=== PATIENT | female | born 1935 | race Caucasian/White ===

== ENCOUNTER 2016-09-21 15:16 | Inpatient (IN) | payer OTHER, MEDICARE ==
[2016-09-21] MEDS ORDERED: DILTIAZEM 125 MG in D5W 125 ML IV SCH (18:30)
[2016-09-21] MEDS ORDERED: FUROSEMIDE 40 MG/4 ML VIAL IVP ONE (18:47)
[2016-09-21] MEDS ORDERED: ACETAMINOPHEN 325 MG TAB PO PRN (18:48)
[2016-09-21] MEDS ORDERED: ONDANSETRON 4 MG/2 ML VIAL IVP PRN (18:48)
[2016-09-21] MEDS ORDERED: ZOLPIDEM TARTRATE 5 MG TAB PO PRN (18:48)
[2016-09-21] MEDS ORDERED: HYDROCORTISONE 1% CREAM TP PRN (18:52)
--- NOTE | 2016-09-21 18:57 | PDGENHP ---
History and Physical History and Physical: HISTORY AND PHYSICAL ADMISSION NOTE CC: RAPID HEART RATE HISTORY: This patient with no history of heart disease arrhythmia or syncope comes from her primary care office because of rapid atrial fibrillation. She has not felt any palpitations, had any chest discomfort, or had any worse shortness of breath than usual. She has been under treatment for cellulitis of both ankles which was noted a couple weeks ago with some oral antibiotic. The patient does say she has noticed swelling in her legs for approximately 2 months more than usual, but no pain in the legs, no orthopnea, no pleuritic chest pain. She does mention that she has a pulse oximeter she uses it has been checking her pulse oximetry at home this past week and has noticed heart rates in the 120s and 130s for several days. EKG reportedly confirmed atrial fibrillation at the clinic. She does not have thyroid disease, is not an alcoholic or drink significant alcohol. Is no family history of arrhythmia ROS: She does think her cellulitis is getting somewhat better, is not having fever with that but it has not resolved. No other symptoms on comprehensive review PAST MEDICAL HISTORY: Currently under treatment for cellulitis of legs Sleep apnea with nightly CPAP Obesity on a new weight loss medicine Diabetes mellitus type 2 on oral medicines Esophageal reflux Osteoarthritis Hypertension Total knee arthroplasty Cholecystectomy FAMILY MEDICAL HISTORY: Her mother may have had heart failure in later years but no other heart disease. Both parents are SOCIAL HISTORY: She lives at the [facility]. She is originally from [place]. She quit smoking in the MEDICATIONS: Her home medicines have been reconciled by our pharmacist and I have reviewed the list in the electronic record and ordered appropriate medicines. PHYSICAL EXAMINATION: Vital Signs: Heart rate now in the 120s, otherwise still stable vital signs without fever Dental Professional: Atrial fibrillation Examination: General: alert, oriented, good mentation, relaxed She is morbidly obese Skin: warm, dry, good color; there is some stasis dermatitis at both ankles and what appears to be some resolving cellulitis with minor excoriations in the anterior aspects of the ankles, probably the source of her cellulitis HEENT: normal Neck: no mass, no jvd visible but the obesity makes examination difficult Resps: relaxed Lungs: Very diminished but clear breath sounds Heart: irregular, no murmur Abdomen: soft, nondistended, nontender, +BS, no mass Upper Extremities: normal Lower Extremities: no edema, warm No Bleeding or bruising 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 THIS IS OF UNCERTAIN CHRONICITY BUT HAS BEEN PRESENT FOR AT LEAST SEVERAL DAYS PROBABLY -The 2 months of swelling in her legs could potentially be due to this atrial fibrillation at least in part indicating possibly more chronic AFib # BILATERAL LEG EDEMA OF 2 MONTHS DURATION -this could be due to the AFib, pulmonary hypertension from her obesity and sleep apnea, or potentially even PE/DVT # CELLULITIS AND STASIS DERMATITIS OF BOTH LEGS. 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 Will need to check creatinine to make sure we are getting the right dosing -Echocardiogram -As she seems to have AFib for at least several days off anticoagulation at home , will not begin any attempt to cardiovert her at this point and will review this with Cardiology -cardiology consult I have reviewed the patient's case in detail with Dr. Rosmery Doran I have reviewed the patient's past medical records as part of this assessment, including previous laboratory data and medications
[2016-09-21] MEDS: APIXABAN 5 MG TAB PO SCH (19:47)
[2016-09-21] MEDS: CEPHALEXIN 500 MG CAP PO SCH (22:48)
[2016-09-21] MEDS: LATANOPROST 0.005% 2.5 ML OPHT DROPS EACHEYE SCH (22:50)
[2016-09-22 05:09] LABS: % IMMATURE GRANULYOCYTES 1.7 % (0.0-1.1); ABSOLUTE IMMATURE GRANULOCYTES 0.11 10^3/uL (0.00-0.10); ADD DIFF? NO; ADD MORPH? NO; ADD SCAN? NO; ATYPICAL LYMPHOCYTE FLAG 0 (0-99); FRAGMENT RBC FLAG 0 (0-99); HEMATOCRIT 40.8 % (38.0-47.0); HEMOGLOBIN 13.4 g/dL (12.6-16.3); LEFT SHIFT FLG 10 (0-99); LIPEMIA HEMOLYSIS FLAG 80 (0-99); MEAN CELL HEMOGLOBIN 28.9 pg (27.9-34.1); MEAN CELL HEMOGLOBIN CONCENTR. 32.8 g/dL (32.4-36.7); MEAN CELL VOLUME 88.1 fL (81.5-99.8); PLATELET CLUMPS FLAG 10 (0-99); PLATELET COUNT 298 10^3/uL (150-400); RED BLOOD CELL COUNT 4.63 10^6/uL (4.18-5.33); RED CELL DISTRIBUTION WIDTH 12.8 % (11.5-15.2)
[2016-09-22 05:26] LABS: ANION GAP 9 mEq/L (8-16); CALCIUM 9.5 mg/dL (8.5-10.4); CARBON DIOXIDE 30 mEq/l (22-31); CHLORIDE 103 mEq/L (97-110); CREATININE 0.7 mg/dL (0.6-1.0); GLOMERULAR FILTRATION RATE > 60; GLUCOSE 158 mg/dL (70-100); MAGNESIUM 1.6 mg/dL (1.6-2.3); POTASSIUM 4.1 mEq/L (3.5-5.2); SODIUM 142 mEq/L (134-144)
--- NOTE | 2016-09-22 08:25 | DX ---
PA and lateral chest - September 21, 2016 HISTORY: Atrial fibrillation. COMPARISON: Portable chest August 26, 2014, PA and lateral chest August 24, 2014. FINDINGS: Mild interstitial prominence and peribronchial thickening are not appreciably changed. Ther e is no pneumothorax. Tiny effusions are suspected. Pleural thickening in the lateral left chest is s table. Moderate cardiomegaly is slightly increased. A hiatal hernia is suspected. Degenerative change is present in the spine. Impression: Cardiomegaly and effusions with mild peribronchial thickening, which could be related to mild CHF, although superimposed bronchitis could have a similar appearance.
[2016-09-22] MEDS: MULTIVITAMINS 1 EACH TAB PO SCH (08:43)
[2016-09-22] MEDS: FUROSEMIDE 40 MG/4 ML VIAL IVP SCH ×2 (08:43→14:57)
[2016-09-22] MEDS: LISINOPRIL 20 MG TAB PO SCH (08:43)
[2016-09-22] MEDS: APIXABAN 5 MG TAB PO SCH ×2 (08:44→23:09)
[2016-09-22] MEDS: PANTOPRAZOLE SODIUM 40 MG TAB PO SCH (08:44)
[2016-09-22] MEDS: CHOLECALCIFEROL VIT D3 1,000 UNITS TAB PO SCH (08:45)
[2016-09-22] MEDS: GLUCOSAMINE/CHONDROITIN CAP PO SCH (08:45)
[2016-09-22] MEDS: ASPIRIN EC 81 MG TAB PO SCH (08:45)
--- NOTE | 2016-09-22 09:13 | HOSPPROG ---
Hospitalist Progress Note Assessment/Plan: #New onset atrial fibrillation -will transition to PO dilt today -TTE with mildly decreased EF, biatrial enlargement -Eliquis -CTA in morning to eval for PE #LE edema -suspect due to a fib -TTE shows low-normal LVEF 50-55%. BNP normal -cont IV lasix at decreased dose -check UA for protein, TSH, LFTs #Controlled DM: metformin #Benign HTN -cont ACEI #Nonpurulent LE cellulitis: cont Keflex #GILMA -CPAP #Diet: low sodium #DVT ppx: Eliquis Subjective: feeling better today Objective: Vital Signs Temp Pulse Resp BP Pulse Ox 36.6 C 85 14 142/97 H 91 L 09/22/16 08:00 09/22/16 08:00 09/22/16 08:00 09/22/16 08:43 09/22/16 08:00 Laboratory Results 09/22/16 04:35 09/22/16 04:35 09/21/16 09/22/16 09/23/16 05:59 05:59 05:59 Intake Total 796 Output Total 1600 600 Balance -804 -600 - Physical Exam Constitutional: obese Eyes: PERRL Ears, Nose, Mouth, Throat: moist mucous membranes Cardiovascular: irregularly irregular Respiratory: no respiratory distress, no rales or rhonchi Gastrointestinal: normoactive bowel sounds, no palpable masses Skin: other (BL excoriations with erythema, warmth to touch. No purulence) ICD10 Worksheet Patient Problems: Problems Problem Status Diagnosed Influenza A Acute
[2016-09-22] MEDS: CEPHALEXIN 500 MG CAP PO SCH ×2 (10:38→23:11)
--- NOTE | 2016-09-22 12:04 | ECHO ---
[id number] + + [address] : : [place] [address] : : [phone] + + Adult Echocardiographic Report + + :Name: ADDI SANTIAGO Study Date: 09/22/2016 10:02 AM : : Hospital Admission Number: [id number] : :: 1935 Gender: Female Height: 64 in : :Age: 80 yrs Race: WH Weight: 290 lb : :Reason For Study: Eval LV Fx : : BSA: 2.3 meters2: :History: New onset A-Fib, : + + MMode/2D Measurements & Calculations IVSd: 0.98 cm LVIDd: 4.8 cm FS: 27.2 % Ao root diam: 3.2 cm LVPWd: 1.1 cm LVIDs: 3.5 cm EDV(Teich): 106.9 ml ACS: 2.1 cm ESV(Teich): 50.4 ml EF(Teich): 52.8 % Normal Measurement Values: + + :LVIDd (3.5-5.7cm) IVSd (0.6-1.1cm) LVPWd (0.6-1.1cm) Aortic Root (2.0-3.7cm)Left Atrium (1.5-4.0cm): :LV Vol(d) (76-115ml) LV Vol(s) (29-48ml) Ejec Fraction (50-65%)PV Duglas (0.6- 1.2m/s) TV Duglas (0.4-1.0m/s) : :MV E Duglas (0.8-1.0m/s)MV A Duglas (0.3-1.0m/s)LVOT Duglas (0.7-1.2m/s) Asc Ao Duglas ( 0.9-1.8m/s) : + + Doppler Measurements & Calculations MV E max duglas: Ao V2 max: LV V1 max: PA V2 max: 107.6 cm/sec 157.5 cm/sec 75.0 cm/sec 100.4 cm/sec MV A max duglas: Ao max PG: LV V1 max PG: PA max P.1 cm/sec 9.9 mmHg 2.3 mmHg 4.0 mmHg MV E/A: 3.5 Left Ventricle The left ventricle is normal in size. There is normal left ventricular wall thickness. Left ventricular systolic function is low normal. Ejection Fraction = 50-55%. Right Ventricle The right ventricle is normal in size and function. Atria The left atrium is mild to moderately dilated. The right atrium is mild to moderately dilated. Mitral Valve The mitral valve is normal in structure and function. There is no evidence of mitral valve prolapse. There is no mitral valve stenosis. There is no mitral regurgitation noted. Tricuspid Valve Normal tricuspid valve. There is trace to mild tricuspid regurgitation. Right ventricular systolic pressure is normal. Aortic Valve The aortic valve opens well. There is mild aortic valve calcification. There is no aortic stenosis. There is no aortic insufficiency. Pulmonic Valve The pulmonic valve is normal in structure and function. There is no pulmonic valvular regurgitation. Great Vessels The aortic root is normal size. Pericardium/Pleural There is no pericardial effusion. The rhythm is atrial fibrillation. Conclusion A complete two-dimensional transthoracic echocardiogram was performed (2D, M-mode, Doppler and color flow Doppler). Left ventricular systolic function is low normal. Ejection Fraction = 50-55%. The right ventricle is normal in size and function. The left atrium is mild to moderately dilated. The right atrium is mild to moderately dilated. The mitral valve is normal in structure and function. There is trace to mild tricuspid regurgitation. Right ventricular systolic pressure is normal. The aortic valve opens well. There is mild aortic valve calcification. The pulmonic valve is normal in structure and function. There is no pericardial effusion. The rhythm is atrial fibrillation. Compared with 08/2014, LV systolic function is now low normal compared with normal Final Reading Physician: Dr Jessie Balderrama electronically signed on 09/22/2016 12:03 PM Ordering Physician: Du Hernandez Performed By: Enrique Honeycutt, CS
[2016-09-22] MEDS: DILTIAZEM 30 MG TAB PO SCH ×2 (18:03→23:11)
[2016-09-22] MEDS: metFORMIN SR 500 MG TAB PO SCH (18:03)
[2016-09-22] MEDS: LATANOPROST 0.005% 2.5 ML OPHT DROPS EACHEYE SCH (23:11)
[2016-09-22 23:23] LABS: COLOR YELLOW; LEUKOCYTE ESTERASE,URINE 2+ (NEGATIVE); NITRITE,URINE NEGATIVE (NEGATIVE)
[2016-09-22 23:28] LABS: BACTERIA TRACE /hpf (NONE SEEN); MUCUS TRACE /lpf (NONE-1+); WBC,URINE 25-50 /hpf (0-3)
[2016-09-23 04:34] LABS: ALANINE AMINOTRANSFERASE 39 IU/L (9-52); ALBUMIN 3.7 g/dL (3.5-5.0); ALKALINE PHOSPHATASE 72 IU/L (38-126); ANION GAP 10 mEq/L (8-16); ASPARTATE AMINOTRANSFERASE 24 IU/L (14-46); CALCIUM 9.5 mg/dL (8.5-10.4); CARBON DIOXIDE 33 mEq/l (22-31); CHLORIDE 98 mEq/L (97-110); CREATININE 0.8 mg/dL (0.6-1.0); GLOMERULAR FILTRATION RATE > 60; GLUCOSE 172 mg/dL (70-100); MAGNESIUM 1.5 mg/dL (1.6-2.3); POTASSIUM 3.7 mEq/L (3.5-5.2); SODIUM 141 mEq/L (134-144); TOTAL PROTEIN 6.5 g/dL (6.3-8.2)
[2016-09-23] MEDS: DILTIAZEM 30 MG TAB PO SCH ×2 (06:19→12:55)
--- NOTE | 2016-09-23 08:30 | HOSPPROG ---
Hospitalist Progress Note Assessment/Plan: #New onset atrial fibrillation vs flutter -TTE with mildly decreased EF, biatrial enlargement, normal RV function -Appreciate Dr. Balderrama's consultation. -change to Metoprolol 25mg BID #Mildly decompensated HF with preserved EF% -suspect due to underlying GILMA, atrial fibrillation -TTE shows low-normal LVEF 50-55%. BNP normal -cont IV lasix #Controlled DM: metformin #GILMA -CPAP #Benign HTN -cont ACEI #Nonpurulent LE cellulitis: -improving on Keflex #GILMA -CPAP #Diet: low sodium #DVT ppx: Eliquis Subjective: no chest pain, SOB or dizziness Objective: Vital Signs Temp Pulse Resp BP Pulse Ox 36.8 C 115 H 20 133/72 H 93 09/23/16 04:00 09/23/16 06:19 09/23/16 04:00 09/23/16 04:00 09/23/16 04:00 Laboratory Results 09/22/16 04:35 09/23/16 03:52 09/22/16 09/23/16 09/24/16 05:59 05:59 05:59 Intake Total 796 1460 Output Total 1600 7387 Balance -623 -8683 - Physical Exam Constitutional: no apparent distress, obese Eyes: PERRL Ears, Nose, Mouth, Throat: moist mucous membranes Cardiovascular: irregularly irregular, edema (+3 LE edema, improved from yesterday) Respiratory: no respiratory distress Gastrointestinal: normoactive bowel sounds Genitourinary: no bladder fullness Skin: warm, other (erythema over left sarkar improved.) Musculoskeletal: full muscle strength Neurologic: AAOx3 Psychiatric: interacting appropriately ICD10 Worksheet Patient Problems: Problems Problem Status Diagnosed Influenza A Acute
--- NOTE | 2016-09-23 08:31 | US ---
Ultrasound Venous Duplex Doppler - Bilateral Legs at 7:42 AM hours History: Pain and swelling. Findings: Ultrasound venous Duplex and Doppler imaging of the bilateral common femoral veins, femoral veins, popliteal veins, calf veins, and greater saphenous vein origins demonstrates normal compressi bility, Duplex color-flow, Doppler flow without deep venous thrombosis. Impression: No deep venous thrombosis bilateral legs.
[2016-09-23] MEDS ORDERED: FUROSEMIDE 20 MG/2 ML VIAL IVP SCH (09:00)
[2016-09-23] MEDS: GLUCOSAMINE/CHONDROITIN CAP PO SCH (09:20)
[2016-09-23] MEDS: LISINOPRIL 20 MG TAB PO SCH (09:20)
[2016-09-23] MEDS: APIXABAN 5 MG TAB PO SCH ×2 (09:20→20:35)
[2016-09-23] MEDS: PANTOPRAZOLE SODIUM 40 MG TAB PO SCH (09:20)
[2016-09-23] MEDS: ASPIRIN EC 81 MG TAB PO SCH (09:20)
[2016-09-23] MEDS: CHOLECALCIFEROL VIT D3 1,000 UNITS TAB PO SCH (09:21)
[2016-09-23] MEDS: MULTIVITAMINS 1 EACH TAB PO SCH (09:21)
--- NOTE | 2016-09-23 11:53 | CPEKG ---
Heart Rate: 111 RR Interval: 541 QRSD Interval: 102 QT Interval: 364 QTC Interval: 495 QRS Mulberry: 69 T Wave Mulberry: -13 EKG Severity - ABNORMAL ECG - EKG Impression: ATRIAL FLUTTER, A-RATE 272 EKG Impression: BORDERLINE PROLONGED QT INTERVAL Electronically Signed By: Robert Lovelace 24-Sep-2016 10:01:04
[2016-09-23] MEDS: CEPHALEXIN 500 MG CAP PO SCH ×2 (12:52→23:52)
[2016-09-23] MEDS ORDERED: PROTOCOL POTASSIUM 1 DOSE MISC PRN ×2 (14:45→15:08)
[2016-09-23] MEDS ORDERED: PROTOCOL MAGNESIUM 1 DOSE IV PRN (14:45)
[2016-09-23] MEDS ORDERED: FUROSEMIDE 40 MG TAB PO SCH (15:00)
[2016-09-23] MEDS ORDERED: MAGNESIUM SULF 2 GM/WATER 50 ML IV ONE ×3 (15:11→18:30)
[2016-09-23] MEDS: FUROSEMIDE 40 MG/4 ML VIAL IVP SCH (15:41)
[2016-09-23] MEDS: METOPROLOL TARTRATE 25 MG TAB PO SCH ×2 (15:54→20:35)
--- NOTE | 2016-09-23 17:52 | GCON ---
[f rep st] CONSULTATION CARDIOLOGY CONSULT DATE OF CONSULTATION: 09/23/2016 CHIEF COMPLAINT: Atrial fibrillation. HISTORY OF PRESENT ILLNESS: We are asked by Dr. Abernathy to visit with Michelle. The patient is an 81-year -old female with hypertension, sleep apnea recently not compliant with CPAP, diabetes, morbid obesity , chronic hypoxic respiratory failure. She was admitted from Dr. Doran's office on September 21 in atrial fibrillation with ventricular response. This was discovered at her office visit. The patient has recently been treated for ankle cellulitis and has had several weeks of bilateral low er extremity edema. Over the past week or so, she has noticed exertional dyspnea. She has not had a ny chest discomfort. She denies presyncope or syncope. She denies palpitations or a sensation of ra pid heartbeat. She does admit that over the summer and fall, she was not using her CPAP but did start using it more recently. REVIEW OF SYSTEMS: A full 10-point review of systems is performed, notable for 1 episode of rectal b leeding in 2008. No history of stroke or TIA. No fever or chills. No nausea, vomiting, or diarrhea . No dysuria, but she does have urinary incontinence. ALLERGIES: Penicillin. PAST MEDICAL HISTORY: 1. Hypertension. 2. Diabetes. 3. Newly diagnosed atrial fibrillation. 4. Morbid obesity. 5. Chronic hypoxic respiratory failure. 6. Cellulitis. 7. Osteoarthritis. 8. Reflux. 9. Sleep apnea with a prescription for CPAP. PAST SURGICAL HISTORY: Status post total knee replacement, status post cholecystectomy. MEDICATIONS ON ADMISSION: Aspirin 81 mg daily, hydrocortisone cream, Glucophage 500 mg daily, hydro chlorothiazide 25 mg daily, Keflex, multivitamin, omeprazole 20 mg daily, vitamin D3, Xalatan eyedro ps, and lisinopril 20 mg daily. SOCIAL HISTORY: The patient lives at the [facility]. She is . She does not smoke cigarettes o r drink alcohol. FAMILY HISTORY: Not applicable to the current case. PHYSICAL EXAM: VITAL SIGNS: Blood pressure 127/64, heart rate 100, oxygen saturation 92% on 3 L nadiya al cannula,respiratory rate is 23, and she is afebrile. Telemetry: AFib with periods of rapid ventricular response. GENERAL: Elderly, obese female, in no acute distress. HEENT: Sclerae clear and free of jaundice. Mucous membranes moist. Normocephalic, atraumatic. CARDIOVASCULAR: JVP is approximately 14 cm of water. Carotids equal and 2+ without bru its. Irregularly irregular rhythm with a soft early systolic murmur at the left lower sternal border . No S3. LUNGS: Clear to auscultation bilaterally without wheezes, rhonchi, or rales. ABDOMEN: O bese, soft, nontender, nondistended. No bruits. No obvious hepatosplenomegaly or masses. EXTREMITI ES: Warm and well perfused without cyanosis or clubbing. There are cellulitic changes over both ank les. She has 1+ pitting edema to the midshin bilaterally. NEURO: Alert and oriented x3 without nelson ss focal neurological deficits. LABORATORY DATA: White count 6.5, hematocrit 41, and platelets are 298. Sodium 141, potassium 3.7, chloride 98, bicarb 33, BUN 26, creatinine 0.8. Magnesium 1.5. Bilirubin 2. BNP 404. TSH is ranjan l. IMAGING: Chest x-ray reviewed by me: Cardiomegaly, small bilateral pleural effusions. Echocardiogr am reviewed by me: Low normal LV systolic function with an ejection fraction of 50-55%, no ischemic wall motion abnormalities, RV is normal in size and function, mild to moderate biatrial dilation, tra ce mild tricuspid regurgitation with normal estimated pulmonary artery pressures. EKG: AFib with ve ntricular response of 111 beats per minute, anterior Q-waves in V1 and V2, QT interval is borderline prolonged. Lower extremity ultrasound is negative for DVT. ASSESSMENT AND PLAN: An 81-year-old female with hypertension, diabetes, morbid obesity and likely ob esity hypoventilation, sleep apnea with recent continuous positive airway pressure noncompliance. e is admitted with atrial fibrillation that appears to have triggered diastolic heart failure. 1. Atrial fibrillation: She was initially on IV diltiazem, then oral diltiazem. I switched her to oral metoprolol with intent to up-titrate to resting heart rate less than 100. I think diltiazem may exacerbate her preexisting lower extremity edema and complicate assessment of volume status. She ag s been started on Eliquis for a [id number] score of 6. Bleeding risks of this medication were revi ewed with the patient and she verbalized understanding. At this point, would not cardiovert her unti l she is more euvolemic and has been predictably back on her CPAP to ensure a higher rate of long-ter m success from cardioversion. Of note, TSH is normal. Discontinue aspirin now that she is on Eliqui s. 2. Heart failure with preserved ejection fraction: I would continue IV diuresis. Her BNP may be fa lsely low due to her obesity. She does appear volume overloaded on exam as manifested by elevated JV P and lower extremity edema. Hopefully. With improved rate control volume status will also improve. 3. Hypertension: Currently well controlled. 4. Sleep apnea: She admits that she has not reliably been using her CPAP. She reports that she ignacio s have an appointment at the [facility] coming up. , I encouraged her to continue with this and wear her CPAP. 5. Obesity: This is complicating her care. It may be 1 cause of her hypoxic respiratory failure. 6. Diabetes: She is on metformin, per Internal Medicine. Thank you for allowing us to participate in the care of Michelle Ronquillo. Will follow with you. /[id number]/MODL
[2016-09-23] MEDS: metFORMIN SR 500 MG TAB PO SCH (18:20)
[2016-09-23 19:07] LABS: POTASSIUM 4.6 mEq/L (3.5-5.2)
[2016-09-23] MEDS: LATANOPROST 0.005% 2.5 ML OPHT DROPS EACHEYE SCH (20:36)
[2016-09-24 05:45] LABS: ANION GAP 11 mEq/L (8-16); CARBON DIOXIDE 31 mEq/l (22-31); CHLORIDE 98 mEq/L (97-110); CREATININE 0.8 mg/dL (0.6-1.0); GLOMERULAR FILTRATION RATE > 60; GLUCOSE 174 mg/dL (70-100); POTASSIUM 4.8 mEq/L (3.5-5.2); SODIUM 140 mEq/L (134-144)
--- NOTE | 2016-09-24 08:47 | HOSPPROG ---
Hospitalist Progress Note Assessment/Plan: #New onset atrial fibrillation -TTE with mildly decreased EF, biatrial enlargement, normal RV function -Appreciate Dr. Balderrama's consultation. -change to Metoprolol 25mg TID, Eliquis #Mildly decompensated HF with preserved EF% -suspect due to underlying GILMA, atrial fibrillation -TTE shows low-normal LVEF 50-55%. BNP normal -improved LE edema, will trial PO dosing today #Controlled DM: metformin #GILMA -CPAP. Outpatient sleep study #Pyuria -60K CFU Pseudo. Will not tx since asymptomatic #Benign HTN -cont ACEI #Nonpurulent LE cellulitis: -improving on Keflex #GILMA -CPAP #Diet: low sodium #DVT ppx: Eliquis Disp: cont monitored diuresis Subjective: legs feel less swollem Objective: Vital Signs Temp Pulse Resp BP Pulse Ox 36.6 C 91 25 H 114/84 H 96 09/24/16 07:38 09/24/16 07:38 09/24/16 07:38 09/24/16 07:38 09/24/16 07:38 Laboratory Results 09/22/16 04:35 09/24/16 05:12 09/23/16 09/24/16 09/25/16 05:59 05:59 05:59 Intake Total 1460 690 Output Total 7318 3150 Balance -4298 -6583 - Physical Exam Constitutional: obese Eyes: PERRL Ears, Nose, Mouth, Throat: moist mucous membranes Cardiovascular: irregularly irregular, edema (+2 LE edema) Respiratory: no respiratory distress, no rales or rhonchi Gastrointestinal: normoactive bowel sounds Skin: warm, other (lower extremity redness improved BL legs) Musculoskeletal: full muscle strength Neurologic: AAOx3 Psychiatric: interacting appropriately ICD10 Worksheet Patient Problems: Problems Problem Status Diagnosed Influenza A Acute
[2016-09-24] MEDS: METOPROLOL TARTRATE 25 MG TAB PO SCH ×3 (09:02→22:32)
[2016-09-24] MEDS: APIXABAN 5 MG TAB PO SCH ×2 (09:02→20:43)
[2016-09-24] MEDS: MULTIVITAMINS 1 EACH TAB PO SCH (10:29)
[2016-09-24] MEDS: GLUCOSAMINE/CHONDROITIN CAP PO SCH (10:29)
[2016-09-24] MEDS: PANTOPRAZOLE SODIUM 40 MG TAB PO SCH (10:29)
[2016-09-24] MEDS: CHOLECALCIFEROL VIT D3 1,000 UNITS TAB PO SCH (10:29)
[2016-09-24] MEDS: LISINOPRIL 20 MG TAB PO SCH (10:29)
[2016-09-24] MEDS: FUROSEMIDE 80 MG TAB PO SCH ×2 (11:14→15:11)
[2016-09-24] MEDS: CEPHALEXIN 500 MG CAP PO SCH ×2 (11:15→22:32)
[2016-09-24] MEDS: FUROSEMIDE 40 MG/4 ML VIAL IVP SCH (11:16)
--- NOTE | 2016-09-24 11:39 | PDCARPN ---
Cardiology Progress Note Assessment/Plan: Assessment/plan: 81-year-old female with chronic hypoxic respiratory failure, sleep apnea, morbid obesity, hypertension, diabetes. Admitted September 21 when she was found to be incidentally in atrial fibrillation with rapid ventricular response at Dr. Dorna's office. She has diuresed well and has been transitioned to oral Lasix. Heart rate is improved but still suboptimally controlled. No evidence of cardiac ischemia. 1. Atrial fibrillation: Titrate metoprolol. She has been started on Eliquis for CHADS2 Vasc score of 6. Bleeding risks have been reviewed. Would wait to cardiovert her once she is more euvolemic and has had her CPAP re-initiated. 2. Hypertension: Well controlled 3. sleep apnea and chronic hypoxic respiratory failure with pulmonary hypertension: She does have follow-up with [facility] to restart her CPAP. I emphasized the importance of this. Weight loss would also be beneficial. 4. Diabetes: She is on metformin 5. cellulitis: On antibiotics. 09/24/16 11:40 Subjective: Michelle reports that she did not have dyspnea with walking. No chest pain. Lower extremity edema is, subjectively, improved Reviewed/Discussed With: family Objective: Vital Signs (8 Hrs) Temp Pulse Resp BP Pulse Ox 09/24/16 07:38 36.6 C 91 25 H 114/84 H 96 09/24/16 04:00 36.8 C 112 H 15 98/78 L 96 Intake/Output (24 Hrs) 09/23/16 09/24/16 09/25/16 05:59 05:59 05:59 Intake Total 1460 690 Output Total 7350 3150 Balance -5890 -2460 Intake: Oral (ml) 1460 690 Output: Urine (ml) 7350 3150 Toilet 850 Bedside Commode 6500 3150 Other: Weight 127.8 kg Intake Quantity Yes Yes Sufficient Number of Voids Bedside Commode 1 Number of Stools Bedside Commode 1 no acute distress. JVP 10 cm water. Irregular regular rhythm. No S3. No murmur Lungs occasional rhonchi. No wheezes or rales. Improved mild lower extremity edema to mid sarkar bilaterally Result Diagrams: 09/22/16 04:35 09/24/16 05:12 Cardiac Labs: Cardiac Lab Results (72 Hrs) 09/23/16 16:10 Troponin I 0.013 Telemetry: Atrial fibrillation with periods of rapid ventricular response ICD10 Worksheet Patient Problems: Problems Problem Status Diagnosed Influenza A Acute
[2016-09-24] MEDS: metFORMIN SR 500 MG TAB PO SCH (17:43)
[2016-09-24] MEDS: LATANOPROST 0.005% 2.5 ML OPHT DROPS EACHEYE SCH (20:44)
[2016-09-25 05:11] LABS: ANION GAP 10 mEq/L (8-16); CALCIUM 9.7 mg/dL (8.5-10.4); CARBON DIOXIDE 32 mEq/l (22-31); CHLORIDE 97 mEq/L (97-110); GLOMERULAR FILTRATION RATE 53; GLUCOSE 176 mg/dL (70-100); POTASSIUM 4.7 mEq/L (3.5-5.2); SODIUM 139 mEq/L (134-144)
[2016-09-25 07:46] VITALS: O2SAT 96
[2016-09-25] MEDS: GLUCOSAMINE/CHONDROITIN CAP PO SCH (09:15)
[2016-09-25] MEDS: MULTIVITAMINS 1 EACH TAB PO SCH (09:15)
[2016-09-25] MEDS: FUROSEMIDE 80 MG TAB PO SCH ×2 (09:15→15:47)
[2016-09-25] MEDS: APIXABAN 5 MG TAB PO SCH (09:15)
[2016-09-25] MEDS: LISINOPRIL 20 MG TAB PO SCH (09:15)
[2016-09-25] MEDS: METOPROLOL TARTRATE 25 MG TAB PO SCH ×2 (09:16→15:47)
[2016-09-25] MEDS: CHOLECALCIFEROL VIT D3 1,000 UNITS TAB PO SCH (09:16)
[2016-09-25] MEDS: PANTOPRAZOLE SODIUM 40 MG TAB PO SCH (09:16)
[2016-09-25 11:24] VITALS: BP 110/70; PULSE 104; RESP 16; TEMP 98.1
--- NOTE | 2016-09-25 12:02 | HOSPPROG ---
[id number] normal RV function -Appreciate Dr. Balderrama's consultation. -change to Metoprolol 25mg TID, Eliquis #Mildly decompensated HF with preserved EF% -suspect due to underlying GILMA, atrial fibrillation -TTE shows low-normal LVEF 50-55%. BNP normal -improved LE edema, will change Lasix 40mg BID #Controlled DM: metformin #GILMA -CPAP. Outpatient sleep study #Pyuria -60K CFU Pseudo. 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 Objective: Vital Signs Temp Pulse Resp BP Pulse Ox 36.7 C 104 H 16 110/70 96 09/25/16 11:23 09/25/16 11:23 09/25/16 11:23 09/25/16 11:23 09/25/16 11:23 Microbiology 09/23/16 09:00 Urine Culture - Final Urine,Clean Catch Pseudomonas Aeruginosa Laboratory Results 09/22/16 04:35 09/25/16 04:25 09/24/16 09/25/16 09/26/16 05:59 05:59 05:59 Intake Total 690 2390 480 Output Total 3150 1700 1500 Balance -2460 690 -1020 - Physical Exam Constitutional: no apparent distress, obese Eyes: PERRL Ears, Nose, Mouth, Throat: moist mucous membranes Cardiovascular: irregularly irregular, edema (+1 edema, less than yesterday) Respiratory: no respiratory distress, no rales or rhonchi Gastrointestinal: normoactive bowel sounds Genitourinary: no bladder fullness Skin: other (erythma unchanged LEs) ICD10 Worksheet Patient Problems: Problems Problem Status Diagnosed Influenza A Acute
[2016-09-25] MEDS: CEPHALEXIN 500 MG CAP PO SCH (12:29)
--- NOTE | 2016-09-25 14:34 | PDCARPN ---
Cardiology Progress Note Assessment/Plan: Assessment/plan: 81-year-old female with chronic hypoxic respiratory failure, sleep apnea, morbid obesity, hypertension, diabetes. Admitted September 21 when she was found to be incidentally in atrial fibrillation with rapid ventricular response at Dr. Doran's office. She has diuresed well and has been transitioned to oral Lasix. Heart rate is improved but still suboptimally controlled. No evidence of cardiac ischemia. 1. Atrial fibrillation: Well controlled on metoprolol. She has been started on Eliquis for CHADS2 Vasc score of 6. Bleeding risks have been reviewed. Would wait to cardiovert her once she is more euvolemic and has had her CPAP re- initiated. 2. Hypertension: Well controlled 3. sleep apnea and chronic hypoxic respiratory failure with pulmonary hypertension: She does have follow-up with [facility] to restart her CPAP. I emphasized the importance of this. Weight loss would also be beneficial. 4. Diabetes: She is on metformin 5. cellulitis: On antibiotics. 6. HFpEF: reduce lasix today Stable for discharge. 09/25/16 14:32 Subjective: Michelle ambulated without SOB. No CP Reviewed/Discussed With: hospitalist (Dr. Abernathy) Objective: Vital Signs (8 Hrs) Temp Pulse Resp BP Pulse Ox 09/25/16 11:23 36.7 C 104 H 16 110/70 96 09/25/16 07:45 36.5 C 105 H 20 114/80 96 Intake/Output (24 Hrs) 09/24/16 09/25/16 09/26/16 05:59 05:59 05:59 Intake Total 690 2390 480 Output Total 3150 1700 1500 Balance -2460 690 -1020 Intake: Oral (ml) 690 2390 480 Output: Urine (ml) 3150 1700 1500 Toilet 400 Bedside Commode 3150 1300 1500 Other: Weight 127.8 kg 127.9 kg Intake Quantity Yes Sufficient Number of Voids Bedside Commode 2 Number of Stools Bedside Commode 1 NAD JVP 10 Irreg irreg no murmur LUngs CTA Iimproved mild BLEE. Stigmata of cellulitis Result Diagrams: 09/22/16 04:35 09/25/16 04:25 Cardiac Labs: Cardiac Lab Results (72 Hrs) 09/23/16 16:10 Troponin I 0.013 Telemetry: AF ICD10 Worksheet Patient Problems: Problems Problem Status Diagnosed Influenza A Acute
--- NOTE | 2016-09-25 15:37 | PDIAF ---
- Diagnosis Code Status: Full Code - Medication Management Discharge Medications: Medications to Continue on Transfer Gluc 2Kcl/Chondr/Michelet Hy/Hy AC [Glucosamine & Chondroitin Cap] 1 each PO DAILY 08/24/14 [Last Taken 09/21/16] Latanoprost 0.005% [Xalatan 0.005% (*)] 1 drops EACHEYE HS 08/24/14 [Last Taken 09/20/16] Multivitamins [Multivitamin (*)] 1 each PO DAILY 08/24/14 [Last Taken 09/21/16] Omeprazole [Prilosec 20 mg] 20 mg PO DAILY 08/24/14 [Last Taken 09/21/16] Aspirin EC [Aspirin EC 81 mg (*)] 81 mg PO DAILY 09/21/16 [Last Taken 09/21/16] Cephalexin [Keflex (*)] 500 mg PO DAILY@09/21/16 [Last Taken 09/21/16 11: 00] Cholecalciferol Vit D3 [Vitamin D3 (*)] 1,000 units PO DAILY 09/21/16 [Last Taken 09/21/16] Hydrocortisone [Cortisone] 1 elsie TP DAILY PRN 09/21/16 [Last Taken Unknown] Lisinopril [Zestril 20 mg (*)] 20 mg PO DAILY 09/21/16 [Last Taken 09/21/16] metFORMIN SR [Glucophage XR 500 mg (*)] 500 mg PO DAILY@1800 09/21/16 [Last Taken 09/20/16] Apixaban [Eliquis] 5 mg PO BID #60 tab 09/25/16 [Last Taken Unknown] Furosemide [Lasix] 40 mg PO BID #60 tab 09/25/16 [Last Taken Unknown] Metoprolol Tartrate [Lopressor 25 mg (*)] 25 mg PO TID #60 tab 09/25/16 [Last Taken Unknown] Discharge Medications: Refer to the Discharge Home Medication list for PRN reason. - Orders Services needed: Home Care, Registered Nurse, Physical Therapy Home Care Face to Face: I certify that this patient was under my care and that I had the required [id number] encounter meeting the encounter requirements on the discharge day. My findings support the fact that the patient is homebound as defined in CMS Chapter 7 Medicare Benefits Manual 30.1.1, The condition of the patient is such that there exists a normal inability to leave home and consequently, leaving home would require a considerable and taxing effort. Diet Recommendation: no restrictions on diet, cardiac -low fat low salt - Follow Up Care Current Providers and Referrals: Rosmery Doran MD [Primary Care Provider] - Jessie Balderrama MD [Medical Doctor] - follow up in 2 weeks
--- NOTE | 2016-09-25 16:15 | GDS ---
[f rep st] DISCHARGE SUMMARY DISCHARGE DIAGNOSES: 1. Benign hypertension. 2. Controlled diabetes. 3. Newly diagnosed atrial fibrillation. 4. Morbid obesity. 5. Chronic hypoxemic respiratory failure. 6. Cellulitis of lower extremities. 7. Osteoarthritis. 8. Gastroesophageal reflux disease. 9. Sleep apnea with continuous positive airway pressure. HPI: Patient is an 81-year-old female with history of hypertension, sleep apnea on CPAP, who came from her primary care office due to rapid atrial fibrillation. She had not noted any palpitations, chest pain, or worsening shortness of breath than usual. She has been under treatment for cellulitis of both ankles, which was noted a couple weeks ago. She has had swelling in her legs for the past 2 months more than usual. Denied pleuritic chest pain, orthopnea, or PND. She has a pulse oximetry at home and this past week noted her heart rate was in the 120s to 130s for several days. HOSPITAL COURSE BY PROBLEM: 1. New onset atrial fibrillation: Appreciate Cardiology consultation. SUNITHA with mildly decreased EF, biatrial enlargement, normal RV function.Likely due to underlying GILMA. Diuresed well with IV and discharged to Lasix 40 mg b.i.d. She was initially placed on a diltiazem drip which was changed to metoprolol t.i.d. Consider cardioversion once she is more euvolemic and is consistent with her CPAP. Again , Eliquis for [id number] score of 6. 2. Benign hypertension: Well controlled. Discontinued hydrochlorothiazide, started Lasix. 3. Sleep apnea: She has followup with [facility] for her CPAP. 4. Chronic hypoxemic respiratory failure: due to sleep apnea.. Plan as above. Also counseled on diet and exercise. 5. Uncontrolled diabetes: Continue metformin. 6. Bilateral lower extremity cellulitis: Patient had been on 2 weeks of Keflex. I actually suspect that some of the erythema was due to volume overload and lower extremity swelling. She is without leukocytosis or fever. I recommend that she stop antibiotics as scheduled today and follow up with her PCP. 7. Mildly decompensated heart failure with preserved EF: Continue metoprolol and Lasix at reduced dose of 40 mg b.i.d. DISPOSITION: Patient is stable for discharge. MEDICATIONS: New medications: Metoprolol 25 mg t.i.d., Eliquis b.i.d., and Lasix 40 mg b.i.d. FOLLOWUP: 1. Dr. Balderrama with Cardiology. Consider cardioversion when more euvolemic. 2. Follow up with Dr. Doran, PCP. 3. Follow up with [facility] for CPAP. /[id number]/MODL MTDD
== END 2016-09-25 15:52 | disposition home health service (06) | DRG 308 ==
LOC: F2W 16:01 → OBSVTOIN 18:49
PROVIDERS: ADMIT Internal Medicine; ATTEND Internal Medicine
DX: I48.91 Unspecified atrial fibrillation (principal); I50.33 Acute on chronic diastolic (congestive) heart failure; J96.11 Chronic respiratory failure with hypoxia; L03.114 Cellulitis of left upper limb; L03.115 Cellulitis of right lower limb; I10 Essential (primary) hypertension; I50.9 Heart failure, unspecified; E03.9 Hypothyroidism, unspecified; E11.9 Type 2 diabetes mellitus without complications; E66.01 Morbid (severe) obesity due to excess calories; K21.9 Gastro-esophageal reflux disease without esophagitis; G47.33 Obstructive sleep apnea (adult) (pediatric); Z79.84 Long term (current) use of oral hypoglycemic drugs
CPT/HCPCS: 97116-GP; 97163-GP; G8978-GP-CJ; G8979-GP-CI

== ENCOUNTER → 2016-10-10 | Outpatient (CLI) | payer OTHER, MEDICARE | LOC: BHFA 11:30 | PROVIDERS: ATTEND Internal Medicine Cardiovascular Disease | DX: I48.0 Paroxysmal atrial fibrillation (principal); R06.02 Shortness of breath; I50.9 Heart failure, unspecified; R60.9 Edema, unspecified ==

== ENCOUNTER → 2016-10-17 | Outpatient (CLI) | payer OTHER, MEDICARE | LOC: BHFA 09:00 | PROVIDERS: ATTEND Internal Medicine Cardiovascular Disease | DX: R06.02 Shortness of breath (principal); I48.91 Unspecified atrial fibrillation | CPT/HCPCS: 78452; 93017; A9500; J2785 ==

== ENCOUNTER 2016-11-01 07:38 | Observation (INO) | payer OTHER, MEDICARE ==
[2016-11-01] MEDS ORDERED: DIAZEPAM 5 MG TAB PO ONE (07:41)
[2016-11-01] MEDS ORDERED: ASPIRIN EC 325 MG TAB PO ONE (07:41)
[2016-11-01] MEDS ORDERED: diphenhydrAMINE 25 MG CAP PO ONE (07:41)
[2016-11-01] MEDS ORDERED: NS 1,000 ML IV ONE (07:41)
[2016-11-01] MEDS ORDERED: FAMOTIDINE 20 MG TAB PO ONE (07:41)
--- NOTE | 2016-11-01 08:14 | CPEKG ---
Heart Rate: 56 RR Interval: 1071 P-R Interval: 200 QRSD Interval: 104 QT Interval: 432 QTC Interval: 417 P [place]: -28 QRS [place]: 52 T Wave [place]: 34 EKG Severity - NORMAL ECG - EKG Impression: SINUS RHYTHM Electronically Signed By: Sam Kam 01-Nov-2016 15:33:46
[2016-11-01 08:36] LABS: ABSOLUTE IMMATURE GRANULOCYTES 0.12 10^3/uL (0.00-0.10); ADD DIFF? NO; ADD MORPH? NO; ADD SCAN? NO; ATYPICAL LYMPHOCYTE FLAG 10 (0-99); FRAGMENT RBC FLAG 0 (0-99); HEMATOCRIT 42.6 % (38.0-47.0); HEMOGLOBIN 14.2 g/dL (12.6-16.3); LEFT SHIFT FLG 10 (0-99); LIPEMIA HEMOLYSIS FLAG 80 (0-99); MEAN CELL HEMOGLOBIN 29.3 pg (27.9-34.1); MEAN CELL HEMOGLOBIN CONCENTR. 33.3 g/dL (32.4-36.7); MEAN CELL VOLUME 87.8 fL (81.5-99.8); MEAN PLATELET VOLUME 10.5 fL (8.7-11.7); PLATELET CLUMPS FLAG 20 (0-99); PLATELET COUNT 255 10^3/uL (150-400); RED BLOOD CELL COUNT 4.85 10^6/uL (4.18-5.33); RED CELL DISTRIBUTION WIDTH 12.6 % (11.5-15.2)
[2016-11-01] MEDS ORDERED: LIDOCAINE 1% 30 ML SDV ONE (08:43)
[2016-11-01] MEDS ORDERED: fentaNYL 100 MCG/2 ML INJ ONE (08:43)
[2016-11-01] MEDS ORDERED: VERAPAMIL 5 MG/2 ML VIAL ONE (08:44)
[2016-11-01] MEDS ORDERED: IOPAMIDOL (ISOVUE-370) 150 ML BTL IV ONE ×2 (08:44→11:10)
[2016-11-01] MEDS ORDERED: HEPARIN 10,000 UNIT/10 ML MDV ONE (08:44)
[2016-11-01] MEDS ORDERED: MIDAZOLAM 2 MG/2 ML VIAL ONE (08:44)
[2016-11-01 08:46] LABS: INR 1.02 (0.83-1.16); PROTIME(PATIENT) 13.3 SEC (12.0-15.0)
[2016-11-01 08:55] LABS: ANION GAP 13 mEq/L (8-16); CALCIUM 10.1 mg/dL (8.5-10.4); CARBON DIOXIDE 26 mEq/l (22-31); CHLORIDE 106 mEq/L (97-110); CHOLESTEROL 189 mg/dL (140-220); CREATININE 0.6 mg/dL (0.6-1.0); GLOMERULAR FILTRATION RATE > 60; GLUCOSE 192 mg/dL (70-100); HIGH DENSITY LIPOPROTEIN 44 mg/dL (40-85); LDL/HDL RATIO 2.75 RATIO (1.00-3.22); LOW DENSITY LIPOPROTEIN 121 mg/dL (80-100); NON-HIGH DENSITY LIPOPROTEIN 145 mg/dL (90-129); POTASSIUM 4.2 mEq/L (3.5-5.2); SODIUM 145 mEq/L (134-144); TRIGLYCERIDE 124 mg/dL (35-135); VERY LOW DENSITY LIPOPROTEINS 24 mg/dL (8-25)
[2016-11-01] MEDS ORDERED: NITROGLYCERIN 1,500 MCG/15 ML VIAL MISC ONE (11:10)
[2016-11-01] MEDS ORDERED: ETOMIDATE 40 MG/20 ML INJ ONE (11:15)
[2016-11-01] MEDS ORDERED: CLOPIDOGREL BISULFATE 75 MG TAB ONE (11:31)
--- NOTE | 2016-11-01 12:10 | CPIP ---
DATE OF PROCEDURE: 11/01/2016 PROCEDURE: 1. Right heart catheterization. 2. Left heart catheterization. 3. Coronary angiography. 4. Left ventriculography. COMPLICATIONS: None. INDICATION FOR PROCEDURE: Diastolic heart failure, abnormal nuclear stress test, ongoing dyspnea. DESCRIPTION OF PROCEDURE: N.p.o. status was confirmed. Informed consent obtained and time-out perf ormed. The patient was brought to the catheterization laboratory and prepped and draped in sterile fashion. 1% lidocaine was used for local anesthesia in the right femoral area. Using modified Seld sho technique, a 5-Mozambican introducer sheath was placed in the right common femoral vein. Newell-Diana z catheter was used for right heart catheterization. We then turned our attention to the arterial a ccess. 1% lidocaine was used for local anesthesia of the right radial area. Using modified Selding er technique, a 5-Mozambican introducer sheath was placed in the right radial artery. Verapamil and hep manjinder were given per protocol. We attempted to advance the wire to the ascending aorta. The patient had a very torturous brachiocephalic trunk and subclavian artery with what appeared to be an aneury smal outpouching at the base of the carotid artery. Given these findings, we aborted the radial elsie ayala and accessed her femoral artery with a micropuncture kit. Dr. Wilde assisted at this time. JL4 and JR4 catheters and pigtail catheter were used for left coronary angiography, right coronary a ngiography, and left ventriculography. FINDINGS: 1. The left main is normal and bifurcates to the LAD and circumflex. The LAD is a large vessel, wr apping around the apex. There is one principal diagonal. There is approximately 30% to 40% stenosi s in the bifurcation of the diagonal off the LAD. There was no significant LAD disease. 2. Left circumflex is nondominant. There are 2 principal obtuse marginals without significant dise ase. 3. The RCA is dominant. In the midportion of the vessel, there is a 75% stenosis by QCA. This elsie ears to be slightly hazy. LEFT VENTRICULOGRAM: Left ventricular ejection fraction 65% with mild basal hypokinesis. HEMODYNAMICS: Initially, the pressures were damped on the right heart tracing, so we repeated the r ight heart catheterization, but were unable to get to the PA. RA pressure is 13 mean, RV pressure 5 4/12, aortic pressure 115/52, LV pressure 142 over left end-diastolic of 24. There was no aortic st enosis. Liliya cardiac output was 7.65 L/minute with a Liliya cardiac index of 3.37 L/minute. This was on 3 L of nasal cannula oxygen. Based on saturations, there was no significant intracardiac shunti ng. CONCLUSIONS: 1. Single-vessel coronary disease in the mid right coronary artery in a patient with abnormal nucle ar stress test and diastolic heart failure. Consultation was obtained with Dr. Wilde for considera tion of percutaneous coronary intervention of this vessel. 2. The patient currently is in stable condition. Results discussed with patient's family. /[id number]/MODL
--- NOTE | 2016-11-01 12:22 | PDDXCAT ---
Diagnostic Cath Note - . Date: 11/01/16 Intervention: (See below) *Procedure Access: right femoral Procedure: 1. selective coronary angiography 2. stent implantation Indication: Identification of a 73% plaque area stenosis in the proximal right coronary artery via QCA (GHASSAN III flow) that required stent implantation. Diagnostic left and right catheterization via Dr. Balderrama (please see her dictated report for more details). *Materials Left Heart Cath size: 6F Left Heart Cath materials: JR4.0, Samurai Guide Wire, 3.5 x 28 mm Synergy, 4.0 x 15 mm NC Emerge Balloon *Findings-Selective Coronary Angiography RCA: The right coronary artery is dominant and has a 73% proximal lesion via QCA. There is GHASSAN III flow throughout. *Intervention Intervention: A 6 Guatemalan JR4.0 guiding catheter was used for guide catheter support. A 0.014" Samurai Guide Wire was advanced across the right coronary lesion in question under direct fluoroscopic and angiographic guidance. A 3.5 x 28 mm Synergy drug eluting stent was placed in the proximal right coronary and inflated to 16 ammon of pressure. S/p stent implantation, a 4.0 x 15 mm NC Emerge balloon was used to post-dilate the lesion under 9 ammon of pressure. S/p stent implantation, there was excellent angiographic results with 0% residual stenosis and GHASSAN III flow throughout. *Summary Complications: None Estimated blood loss: <50ml Closure method: Angioseal Assessment/Conclusion: 1. Severe and flow-limiting coronary artery disease that required stent implantation in the proximal right coronary artery (73% plaque area stenosis via QCA with GHASSAN III flow) 2. Successful stent implantation with a 3.5 x 28 mm Synergy drug eluting stent with 0% residual stenosis and GHASSAN III flow. The patient will need to be on so called triple therapy with the use of ASA, Eliquis and Plavix for 30 days s/p stent implantation. After this point in time we will discontinue the ASA while continuing the Plavix and Eliquis. Patient Problems: Problems Problem Status Onset Influenza A Acute
[2016-11-01] MEDS ORDERED: ATROPINE SULFATE 1 MG/10 ML SYR IVP PRN (12:40)
[2016-11-01] MEDS ORDERED: LORazepam 2 MG/ML INJ IVP PRN (12:40)
[2016-11-01] MEDS ORDERED: OXYCODONE/APAP 5/325 TAB PO PRN (12:40)
[2016-11-01] MEDS ORDERED: ONDANSETRON 4 MG/2 ML VIAL IVP PRN (12:40)
[2016-11-01] MEDS ORDERED: NITROGLYCERIN 0.4 MG BTL SL PRN (12:40)
[2016-11-01] MEDS ORDERED: ONDANSETRON DISINTEGRATING 4 MG TAB PO PRN (12:40)
[2016-11-01] MEDS ORDERED: CLOPIDOGREL BISULFATE 75 MG TAB PO ONE (12:40)
[2016-11-01] MEDS ORDERED: ACETAMINOPHEN 325 MG TAB PO PRN (12:40)
[2016-11-01] MEDS ORDERED: TEMAZEPAM 15 MG CAP PO PRN (12:40)
[2016-11-01] MEDS ORDERED: NS 1,000 ML IV SCH (12:45)
--- NOTE | 2016-11-01 13:06 | CPEKG ---
Heart Rate: 52 RR Interval: 1154 P-R Interval: 200 QRSD Interval: 106 QT Interval: 456 QTC Interval: 424 P [place]: -48 QRS [place]: 59 T Wave [place]: 35 EKG Severity - ABNORMAL ECG - EKG Impression: SINUS OR ECTOPIC ATRIAL RHYTHM EKG Impression: MULTIPLE ATRIAL PREMATURE COMPLEXES Electronically Signed By: Sam Kam 01-Nov-2016 15:33:38
[2016-11-01] MEDS ORDERED: ATROPINE SULFATE 1 MG/10 ML SYR ONE (14:28)
[2016-11-01 16:38] LABS: HEMATOCRIT 42.3 % (38.0-47.0)
[2016-11-01] MEDS ORDERED: LATANOPROST 0.005% 2.5 ML OPHT DROPS EACHEYE SCH (21:00)
[2016-11-02 05:54] LABS: ABSOLUTE IMMATURE GRANULOCYTES 0.07 10^3/uL (0.00-0.10); ADD DIFF? NO; ADD MORPH? NO; ADD SCAN? NO; ATYPICAL LYMPHOCYTE FLAG 0 (0-99); FRAGMENT RBC FLAG 0 (0-99); HEMATOCRIT 40.2 % (38.0-47.0); HEMOGLOBIN 13.1 g/dL (12.6-16.3); LEFT SHIFT FLG 0 (0-99); LIPEMIA HEMOLYSIS FLAG 80 (0-99); MEAN CELL HEMOGLOBIN 28.7 pg (27.9-34.1); MEAN CELL HEMOGLOBIN CONCENTR. 32.6 g/dL (32.4-36.7); MEAN CELL VOLUME 88.2 fL (81.5-99.8); MEAN PLATELET VOLUME 10.4 fL (8.7-11.7); PLATELET CLUMPS FLAG 0 (0-99); PLATELET COUNT 234 10^3/uL (150-400); RED BLOOD CELL COUNT 4.56 10^6/uL (4.18-5.33); RED CELL DISTRIBUTION WIDTH 12.8 % (11.5-15.2)
[2016-11-02 06:07] LABS: ALBUMIN 3.5 g/dL (3.5-5.0); ANION GAP 6 mEq/L (8-16); ASPARTATE AMINOTRANSFERASE 17 IU/L (14-46); BILIRUBIN,TOTAL 1.5 mg/dL (0.1-1.4); CALCIUM 9.5 mg/dL (8.5-10.4); CARBON DIOXIDE 29 mEq/l (22-31); CHLORIDE 107 mEq/L (97-110); CREATININE 0.6 mg/dL (0.6-1.0); GLOMERULAR FILTRATION RATE > 60; GLUCOSE 166 mg/dL (70-100); LACTATE DEHYDROGENASE 332 IU/L (313-618); POTASSIUM 4.2 mEq/L (3.5-5.2); SODIUM 142 mEq/L (134-144)
--- NOTE | 2016-11-02 08:47 | CPEKG ---
Heart Rate: 72 RR Interval: 833 P-R Interval: 196 QRSD Interval: 98 QT Interval: 384 QTC Interval: 421 P [place]: 2 QRS [place]: 54 T Wave [place]: -40 EKG Severity - ABNORMAL ECG - EKG Impression: SINUS RHYTHM EKG Impression: MULTIPLE ATRIAL PREMATURE COMPLEXES EKG Impression: BORDERLINE T ABNORMALITIES, INFERIOR LEADS Electronically Signed By: Sam Kam 02-Nov-2016 14:35:32
[2016-11-02] MEDS ORDERED: GLUCOSAMINE/CHONDROITIN CAP PO SCH (09:00)
[2016-11-02] MEDS ORDERED: FLUTICASONE NASAL 120 SPRAYS/16 GM MDI EACHNARE SCH (09:00)
[2016-11-02] MEDS ORDERED: METOPROLOL SUCCINATE XR 25 MG TAB PO SCH (09:00)
[2016-11-02] MEDS ORDERED: CLOPIDOGREL BISULFATE 75 MG TAB PO SCH (09:00)
[2016-11-02] MEDS ORDERED: ASPIRIN EC 325 MG TAB PO SCH (09:00)
[2016-11-02] MEDS ORDERED: LISINOPRIL 20 MG TAB PO SCH (09:00)
[2016-11-02] MEDS ORDERED: ASPIRIN EC 81 MG TAB PO SCH ×2 (09:00)
[2016-11-02] MEDS ORDERED: PANTOPRAZOLE SODIUM 40 MG TAB PO SCH (09:00)
[2016-11-02] MEDS ORDERED: MULTIVITAMINS 1 EACH TAB PO SCH (09:00)
[2016-11-02] MEDS ORDERED: METOPROLOL TARTRATE 25 MG TAB PO SCH (09:00)
[2016-11-02] MEDS: FUROSEMIDE 40 MG TAB PO SCH ×2 (10:22→14:53)
[2016-11-02 12:58] VITALS: BP 126/58; PULSE 78; RESP 18; TEMP 97.8; O2SAT 96
[2016-11-02] MEDS ORDERED: ATORVASTATIN CALCIUM 40 MG TAB PO SCH (15:30)
--- NOTE | 2016-11-02 16:32 | GDS ---
ADMISSION DIAGNOSES: 1. Diastolic heart failure. 2. Abnormal nuclear stress test. 3. Paroxysmal atrial fibrillation. 4. Diabetes. 5. Hypertension. 6. Sleep apnea, on CPAP. DISCHARGE DIAGNOSES: 1. Coronary disease, status post RCA stenting. 2. Diastolic heart failure. 3. Paroxysmal atrial fibrillation. 4. Diabetes. 5. Hypertension. 6. Sleep apnea. 7. Pulmonary hypertension. PROCEDURES DURING ADMISSION: Right and left heart catheterization (please see full report). In sum antoinette, the patient has nonflow-limiting diagonal branch disease, 75% stenosis in the RCA that was int ervened upon by Dr. Wilde with a single drug-eluting stent; moderate pulmonary hypertension with hy pertension with RV pressure 54/12; end-diastolic pressure in the LV was 24. The stent in the RCA is a 3.5 x 28 mm synergy (drug-eluting stent). HOSPITAL COURSE: The patient is an 81-year-old female with the above-detailed medical history. She was admitted electively for right and left heart catheterization in the setting of diastolic heart failure, and an abnormal nuclear stress test. She received a drug-eluting stent to the right castellon ry artery. She tolerated the procedure well without complications. The next day she was out of bed with no pain in her groin. She denied chest pain or shortness of breath. DISCHARGE LABORATORY DATA: CBC is normal. BUN and creatinine remain normal. Total bilirubin 1.5. LDL cholesterol 121. DISCHARGE PHYSICAL EXAM: VITAL SIGNS: Blood pressure 126/58, heart rate 78, oxygen saturation 96% on room air. She is afebrile. GENERAL: Well-appearing in no acute distress. NECK: JVP less than 10. CARDIOVASCULAR: Regular rate and rhythm without murmur, rub, or gallop. LUNGS: Clear to aus cultation without wheeze, rhonchi, or rales. ABDOMEN: Obese, soft, and nontender. Right groin davey ws extensive ecchymoses without hematoma or bruit. EXTREMITIES: Warm and well perfused with trace bilateral pedal edema. DISCHARGE MEDICATIONS: Please see med reconciliation. She will be on Eliquis, Plavix, and aspirin for 1 month. After 1 month (December 03), she may discontinue aspirin. We have reduced her metoprolo l. She had some bradycardic events on outpatient monitoring. She is now on Toprol 12.5 mg once lis ly. I have also added atorvastatin for her LDL of 120 in the setting of coronary disease. DISCHARGE INSTRUCTIONS: 1. The patient will be discharged to the [facility] in stable condition. 2. She will be enrolled in cardiac rehab. 3. Follow up with Dr. Balderrama, november 12, 3 p.m. 4. Follow up with Dr. Doran in 1-2 weeks. 5. Groin and wrist precautions were reviewed with the patient and her daughter. Currently in stabl e condition. /[id number]/MODL
== END 2016-11-02 16:35 | disposition home or self-care (01) ==
LOC: FCATH 07:38 → F2W 11:57
PROVIDERS: ADMIT Internal Medicine Cardiovascular Disease; ATTEND Internal Medicine Cardiovascular Disease
PROC: 027034Z Dilation of Coronary Artery, One Artery with Drug-eluting Intraluminal Device, Percutaneous Approach (ICD-10-PCS; principal; 2016-11-01)
PROC: B2151ZZ Fluoroscopy of Left Heart using Low Osmolar Contrast (ICD-10-PCS; principal; 2016-11-01)
PROC: B2111ZZ Fluoroscopy of Multiple Coronary Arteries using Low Osmolar Contrast (ICD-10-PCS; principal; 2016-11-01)
PROC: 4A023N8 Measurement of Cardiac Sampling and Pressure, Bilateral, Percutaneous Approach (ICD-10-PCS; principal; 2016-11-01)
DX: I25.10 Atherosclerotic heart disease of native coronary artery without angina pectoris (principal); I50.30 Unspecified diastolic (congestive) heart failure; I48.0 Paroxysmal atrial fibrillation; E11.9 Type 2 diabetes mellitus without complications; I11.0 Hypertensive heart disease with heart failure; G47.33 Obstructive sleep apnea (adult) (pediatric); I27.2 Other secondary pulmonary hypertension; E66.01 Morbid (severe) obesity due to excess calories; J44.9 Chronic obstructive pulmonary disease, unspecified; J96.11 Chronic respiratory failure with hypoxia
CPT/HCPCS: 93005; 93460; C1725; C1769; C1874; C1887; C9600; J0461; J1644; J2250; J3010; Q9967

== ENCOUNTER 2016-11-06 11:16 | Emergency (ER) | payer OTHER, MEDICARE ==
--- NOTE | 2016-11-06 13:22 | EDPHY ---
H & P Time Seen by Provider: 11/06/16 13:21 HPI/ROS: CHIEF COMPLAINT: Lump in right groin HISTORY OF PRESENT ILLNESS: 81-year-old woman had right coronary artery stenting on November 01 of this year through a right groin approach. She had some bruising afterwards and on Saturday noticed a painful swelling in the groin area and presents today for evaluation. Swelling is just superior to the inguinal area and firm but not associated with fever. No weakness in extremities. Symptoms mild at rest. No radiation. REVIEW OF SYSTEMS: Eye: no change in vision ENT: no sore throat Cardiac: no chest pain or syncope Pulmonary: no cough or SOB Abdomen: no vomiting, diarrhea, abdominal pain Musculoskeletal: no back pain Skin: Bruising on the right groin from the right iliac crest to the midline pubis. Neuro: no headache, describes a little bit of numbness in both feet Constitutional: no fever : no urinary symptoms A comprehensive 10 point review of systems is otherwise negative aside from elements mentioned in the history of present illness. PAST MEDICAL HISTORY: Includes atrial fibrillation, diabetes, hypertension, COPD on home oxygen, left total knee. Social history: Ex smoker, here with daughter General Appearance: Alert and conversant, cooperative. Eyes: No scleral icterus. ENT, Mouth: Normal mucous membranes. Respiratory: Normal respiratory effort, breath sounds equal, slight wheezes but speaks in full sentences. Cardiovascular: Distant heart sounds, no murmur. Gastrointestinal: Abdomen is soft and non tender. Neurological: Alert and oriented x3. Normally conversant. Face symmetric, normal movement and sensation in all extremities. Specifically has normal sensation to light touch in both feet and toes are downgoing. Skin: Bruising on the right groin from the right iliac crest through the midline of the pubis. No lymphangitis. No discharge or drainage. No warmth or skin redness. There is a 1 x 2 cm firm swelling just above the right inguinal area. There is a very slight amount of skin breakdown in the skin fold at the groin. Musculoskeletal: No peripheral edema and no joint swelling. Psychiatric: Not agitated. Emergency Department course/MDM: Likely superficial hematoma or blood clot, my suspicion for pseudoaneurysm or acute extravasation and bleeding or abscess or cellulitis is low. Plan for ultrasound, discharge if confirmatory. Smoking Status: Former smoker Constitutional: Initial Vital Signs Temperature (C) 36.6 C 11/06/16 11:45 Heart Rate 61 11/06/16 11:45 Respiratory Rate 18 11/06/16 11:45 Blood Pressure 117/74 11/06/16 11:45 O2 Sat (%) 91 L 11/06/16 11:45 O2 Delivery Mode Nasal Cannula O2 (L/minute) 2 Allergies/Adverse Reactions: Penicillins Allergy (Intermediate, Verified 11/06/16 11:48) Rash Home Medications: Medication Instructions Recorded Gluc 2Kcl/Chondr/Michelet Hy/Hy AC 1 each PO DAILY 08/24/14 [Glucosamine & Chondroitin Cap] Latanoprost 0.005% [Xalatan 0.005% 1 drops EACHEYE HS 08/24/14 (*)] Multivitamins [Multivitamin (*)] 1 each PO DAILY 08/24/14 Omeprazole [Prilosec 20 mg] 20 mg PO DAILY 08/24/14 Aspirin EC [Aspirin EC 81 mg (*)] 81 mg PO DAILY 09/21/16 Lisinopril [Zestril 20 mg (*)] 20 mg PO DAILY 09/21/16 metFORMIN SR [Glucophage XR 500 mg 500 mg PO DAILY@1800 09/21/16 (*)] Apixaban [Eliquis] 5 mg PO BID #60 tab 09/25/16 Acetaminophen [Tylenol 325mg (*)] 325 - 650 mg PO Q6H PRN 11/01/16 Fluticasone Nasal [Flonase Nasal 1 sprays NASAL DAILY 11/01/16 Craig] Furosemide [Lasix 40 MG (*)] 40 mg PO BIDDIUR 11/01/16 Atorvastatin Calcium [Lipitor 40 40 mg PO DAILY #90 tab 11/02/16 mg (*)] Clopidogrel Bisulfate [Plavix (*)] 75 mg PO DAILY #90 tab 11/02/16 Metoprolol Succinate Xr [Toprol Xl 12.5 mg PO DAILY #90 tab 11/02/16 25 mg (*)] Medical Decision Making - Diagnostics Imaging: Ultrasound reviewed personally with Yohana at 3:15 p.m. negative. Departure - Departure Disposition: Home, Routine, Self-Care Clinical Impression: Groin hematoma Qualifiers: Encounter type: initial encounter Qualified Code(s): S30.1XXA - Contusion of abdominal wall, initial encounter Condition: Good Instructions: Hematoma (ED) Referrals: Rosmery Doran MD [Primary Care Provider] - As per Instructions
[2016-11-06 15:42] VITALS: BP 136/67; PULSE 74; RESP 20; TEMP 98.2; O2SAT 93
== END 2016-11-06 15:42 | disposition home or self-care (01) ==
DX: L76.22 Postprocedural hemorrhage of skin and subcutaneous tissue following other procedure (principal); E11.9 Type 2 diabetes mellitus without complications; I10 Essential (primary) hypertension; J44.9 Chronic obstructive pulmonary disease, unspecified; Z79.82 Long term (current) use of aspirin; Z87.891 Personal history of nicotine dependence; Y82.8 Other medical devices associated with adverse incidents

== ENCOUNTER 2018-10-28 11:23 | Inpatient (IN) | payer OTHER, MEDICARE ==
--- NOTE | 2018-10-28 12:13 | EDPHY ---
H & P Stated Complaint: slipped off side of bed last night/may have hit r chest/ribs/ Time Seen by Provider: 10/28/18 11:42 - Personal History Current Tetanus Diphtheria and Acellular Pertussis (TDAP): Yes - Medical/Surgical History Hx Asthma: No Hx Chronic Respiratory Disease: No Hx Diabetes: Yes Hx Cardiac Disease: Yes Hx Renal Disease: No Hx Cirrhosis: No Hx Alcoholism: No Hx HIV/AIDS: No Hx Splenectomy or Spleen Trauma: No Other PMH: AFib (paroxysmal). Obesity. Diastolic HF. DM2. HTN. cardiac stents. COPD w/home O2 3L cont. Former Smoker 20 pack year. L knee replacement. PNA. LLE cellulitis - Social History Smoking Status: Former smoker Constitutional: Initial Vital Signs Temperature (C) 37.2 C 10/28/18 11:31 Heart Rate 92 10/28/18 11:31 Respiratory Rate 19 10/28/18 11:31 Blood Pressure 105/58 L 10/28/18 11:31 O2 Sat (%) 90 L 10/28/18 11:31 O2 Delivery Mode Nasal Cannula O2 (L/minute) 3 Allergies/Adverse Reactions: Penicillins Allergy (Intermediate, Verified 10/28/18 11:30) Rash Home Medications: Medication Instructions Recorded Glucosam/Chondr/Collagn/Hyalur 1 each PO DAILY 08/24/14 [Glucosamine & Chondroitin Cap] Latanoprost 0.005% [Xalatan 0.005% 1 drops EACHEYE HS 08/24/14 (*)] Multivitamins [Multivitamin (*)] 1 each PO DAILY 08/24/14 Omeprazole [Prilosec 20 mg] 20 mg PO DAILY 08/24/14 Aspirin EC [Aspirin EC 81 mg (*)] 81 mg PO DAILY 09/21/16 Lisinopril [Zestril 20 mg (*)] 20 mg PO DAILY 09/21/16 metFORMIN SR [Glucophage XR 500 mg 500 mg PO DAILY@1800 09/21/16 (*)] Apixaban [Eliquis] 5 mg PO BID #60 tab 09/25/16 Acetaminophen [Tylenol 325mg (*)] 325 - 650 mg PO Q6H PRN 11/01/16 Fluticasone Nasal [Flonase Nasal 1 sprays NASAL DAILY 11/01/16 [place]] Furosemide [Lasix 40 MG (*)] 40 mg PO BIDDIUR 11/01/16 Atorvastatin Calcium [Lipitor 40 40 mg PO DAILY #90 tab 11/02/16 mg (*)] Clopidogrel Bisulfate [Plavix (*)] 75 mg PO DAILY #90 tab 11/02/16 Metoprolol Succinate Xr [Toprol Xl 12.5 mg PO DAILY #90 tab 11/02/16 25 mg (*)] Medical Decision Making - Diagnostics Imaging: I viewed and interpreted images myself ED Course/Re-evaluation: CHIEF COMPLAINT: Difficulty ambulating HISTORY OF PRESENT ILLNESS: 83-year-old female who got up in the middle the night to urinate. She slipped down and sat very gently next to the bed because she could not support herself. Her daughter states that last time this happened she had an infection this is happened with urinary tract and influenza in the past. She did not injure herself and said she sat very gently just leaned against the bed until somewhat arrived. She denies any fevers or chills. She denies any urinary symptoms. She has a mild cough which is the only symptom she endorses. Daughter is at bedside. It is obvious from the monitor that she is significantly hypotensive. Systolic pressure is 78-80 diastolic 30-40. She also feels a bit lightheaded when she sits up and moves around. She is on several blood pressure medicines but she denies taking extra and her daughter states that she checked her pill box. REVIEW OF SYSTEMS: A comprehensive 10 system review of systems is otherwise negative aside from elements mentioned in the history of present illness and medical decision making. PHYSICAL EXAM: HR, BP, O2 Sat, RR. Temp noted General Appearance: Alert, well hydrated, appropriate, and non-toxic appearing. Head: Atraumatic without scalp tenderness or obvious injury Eyes: Pupils equal, round, reactive to light and accommodation, EOMI, no trauma , no injection. Ears: Clear bilaterally, no perforation, normal landmarks Nose: Atraumatic, no rhinorrhea, clear. Throat: There is no erythema or exudates, no lesions, normal tonsils, mucus membranes moist. Neck: Supple, nontender, no lymphadenopathy. Respiratory: No retractions, no distress, no wheezes, and no accessory muscle use. Lungs are clear to auscultation bilaterally. Cardiovascular: Regular rate and rhythm, no murmurs, rubs, or gallops. Good capillary refill all extremities. Gastrointestinal: Abdomen is soft, nontender, non-distended, no masses, no rebound, no guarding, no peritoneal signs. Musculoskeletal: Normal active ROM of all extremities, atraumatic. Neurological: Alert, appropriate, and interactive. The patient has non-focal cranial nerves, motor, sensory, and cerebellar exam. Skin: No rashes, good turgor, no nodules on palpation. Past medical history: Hypertension, diabetes, influenza, UTIs, past records reviewed Past surgical history: Noncontributory for today's visit past records reviewed Family history: Noncontributory Social history: Single, lives on her own but has helped the comes in. Her daughter lives close by also. No tobacco drugs or alcohol use DIAGNOSTICS/PROCEDURES/CRITICAL CARE TIME: Chest x-ray: right lower lobe pneumonia. DIFFERENTIAL DIAGNOSIS: Includes but is not limited to: Urinary tract infection, influenza, sepsis, influenza, hypotension secondary to too many medicines. MEDICAL DECISION MAKING: This patient is significantly hypotensive. I am not sure why at this point. She is alert and oriented and remembers things at baseline according to her daughter. She rules in for initial sepsis screening. Laboratory studies are pending. 1245: BP now 119/64. WBC elevated at 20.94, lactate elevated at 2.7, d-dimer elevated at 0.95, creatinine elevated at 1.3. She is prerenally dehydrated. Elevated lactate most likely from hypoperfusion. Flu swab negative. 2L IV NS ordered. She does not currently meet sepsis criteria. Chest x-ray shows right infiltrate. D-dimer is likely elevated due to age, dehydration, and renal insufficiency, so will not pursue angiography a this time. 1gm IV Ceftriaxone ordered for pneumonia. Respiratory pathogen panel, cultures, and repeat lactate ordered. Spoke with hospitalist service. Dr. Martin accepts admission for pneumonia and dehydration. - Data Points Laboratory Results: Laboratory Results 10/28/18 12:15 10/28/18 12:15 10/28/18 10/28/18 10/28/18 12:23 12:15 12:15 WBC RBC Hgb Hct MCV MCH MCHC RDW Plt Count MPV Neut % (Auto) Lymph % (Auto) [place] % (Auto) Eos % (Auto) Baso % (Auto) Nucleat RBC Rel Count Absolute Neuts (auto) Absolute Lymphs (auto) Absolute Monos (auto) Absolute Eos (auto) Absolute Basos (auto) Absolute Nucleated RBC Immature Gran % Seg Neutrophils % Band Neutrophils % Lymphocytes % Monocytes % Eosinophils % Basophils % Metamyelocytes % Myelocytes % Promyelocytes % Blast Cells % Immature Gran # Absolute Seg Neuts Absolute Band Neuts Absolute Lymphocytes Absolute Monocytes Absolute Eosinophils Absolute Basophils Absolute Metamyelocyte Absolute Myelocytes Absolute Promyelocytes Absolute Plasma Cells Nucleated RBCs RBC/WBC/PLT Morphology Absolute Blast Cells Plasma Cells % Platelet Estimate PT 16.3 SEC H SEC (12.0-15.0) INR 1.29 H (0.83-1.16) APTT 30.9 SEC SEC (23.0-38.0) D-Dimer 0.95 ug/mLFEU H ug/mLFEU (0.00-0.50) VBG Lactic Acid 2.7 mmol/L H mmol/L (0.7-2.1) Sodium Potassium Chloride Carbon Dioxide Anion Gap BUN Creatinine Estimated GFR Glucose Calcium Total Bilirubin POC Troponin I 0.02 ng/mL ng/mL (0.00-0.08) NT-Pro-B Natriuret Pep Nasal Influenza A PCR Nasal Influenza B PCR 10/28/18 10/28/18 10/28/18 12:15 12:15 11:40 WBC 20.94 10^3/uL H 10^3/uL (3.80-9.50) RBC 4.52 10^6/uL 10^6/uL (4.18-5.33) Hgb 13.0 g/dL g/dL (12.6-16.3) Hct 40.7 % % (38.0-47.0) MCV 90.0 fL fL (81.5-99.8) MCH 28.8 pg pg (27.9-34.1) MCHC 31.9 g/dL L g/dL (32.4-36.7) RDW 12.3 % % (11.5-15.2) Plt Count 278 10^3/uL 10^3/uL (150-400) MPV 10.3 fL fL (8.7-11.7) Neut % (Auto) Not Reported Lymph % (Auto) Not Reported [place] % (Auto) Not Reported Eos % (Auto) Not Reported Baso % (Auto) Not Reported Nucleat RBC Rel Count Not Reported Absolute Neuts (auto) Not Reported Absolute Lymphs (auto) Not Reported Absolute Monos (auto) Not Reported Absolute Eos (auto) Not Reported Absolute Basos (auto) Not Reported Absolute Nucleated RBC Not Reported Immature Gran % Not Reported Seg Neutrophils % 83.0 % % Band Neutrophils % 7.0 % % Lymphocytes % 4.0 % % Monocytes % 5.0 % % Eosinophils % 0.0 % % Basophils % 1.0 % % Metamyelocytes % 0.0 % % Myelocytes % 0.0 % % Promyelocytes % 0.0 % % Blast Cells % 0.0 % % Immature Gran # Not Reported Absolute Seg Neuts 17.38 10^3/uL H 10^3/uL (1.70-6.50) Absolute Band Neuts 1.47 10^3/uL H 10^3/uL (0.00-0.70) Absolute Lymphocytes 0.84 10^3/uL L 10^3/uL (1.00-3.00) Absolute Monocytes 1.05 10^3/uL H 10^3/uL (0.30-0.80) Absolute Eosinophils 0.00 10^3/uL L 10^3/uL (0.03-0.40) Absolute Basophils 0.21 10^3/uL H 10^3/uL (0.02-0.10) Absolute Metamyelocyte 0.00 10^3/mL 10^3/mL (0.00-0.00) Absolute Myelocytes 0.00 10^3/mL 10^3/mL (0.00-0.00) Absolute Promyelocytes 0.00 10^3/uL 10^3/uL (0.00-0.00) Absolute Plasma Cells 0.00 10^3/uL 10^3/uL (0.00-0.00) Nucleated RBCs 0 /100 WBC /100 WBC (0-0) RBC/WBC/PLT Morphology NORMAL (NORMAL) Absolute Blast Cells 0.00 10^3/uL 10^3/uL (0.00-0.00) Plasma Cells % 0.0 % % Platelet Estimate ADEQUATE (ADEQ) PT INR APTT D-Dimer VBG Lactic Acid Sodium 139 mEq/L mEq/L (135-145) Potassium 4.1 mEq/L mEq/L (3.5-5.2) Chloride 105 mEq/L mEq/L (97-110) Carbon Dioxide 24 mEq/l mEq/l (22-31) Anion Gap 10 mEq/L mEq/L (6-14) BUN 62 mg/dL H mg/dL (7-23) Creatinine 1.3 mg/dL H mg/dL (0.6-1.0) Estimated GFR 39 Glucose 240 mg/dL H mg/dL (70-100) Calcium 9.7 mg/dL mg/dL (8.5-10.4) Total Bilirubin 1.5 mg/dL H mg/dL (0.1-1.4) POC Troponin I NT-Pro-B Natriuret Pep 609 pg/mL H pg/mL (0-450) Nasal Influenza A PCR NEGATIVE FOR FLU A (NEGATIVE) Nasal Influenza B PCR NEGATIVE FOR FLU B (NEGATIVE) Point of Care Test Results: Chemistry 10/28/18 12:23 POC Troponin I 0.02 ng/mL ng/mL (0.00-0.08) Departure - Departure Disposition: [facility] Inpatient Acute Clinical Impression: Dehydration Pneumonia Qualifiers: Pneumonia type: due to unspecified organism Laterality: right Lung location: lower lobe of lung Qualified Code(s): J18.1 - Lobar pneumonia, unspecified organism Condition: Fair Referrals: Rosmery Doran MD [Primary Care Provider] - As per Instructions
[2018-10-28 12:33] LABS: PLATELET COUNT 278 10^3/uL (150-400)
[2018-10-28 12:44] LABS: INR 1.29 (0.83-1.16); PROTIME(PATIENT) 16.3 SEC (12.0-15.0)
[2018-10-28] MEDS ORDERED: NS 1,000 ML IV ONE (12:57)
[2018-10-28] MEDS ORDERED: AZITHROMYCIN IV 500 MG in NS 250 ML IV ONE (13:03)
[2018-10-28] MEDS ORDERED: IPRATROPIUM/ALBUTEROL 3 ML DEYVIAL IH PRN (13:56)
[2018-10-28] MEDS ORDERED: ONDANSETRON DISINTEGRATING 4 MG TAB PO PRN (13:56)
[2018-10-28] MEDS ORDERED: ACETAMINOPHEN 325 MG TAB PO PRN (13:56)
[2018-10-28] MEDS ORDERED: ONDANSETRON 4 MG/2 ML VIAL IVP PRN (13:56)
--- NOTE | 2018-10-28 14:39 | PDGENHP ---
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 Her daughter is at bedside who has helped with hx taking. They report that patient got up in the middle of the night to urinate and felt weak to the point where she could not support herself. She denied any f/c, chest pain, SOB, n/v, d/c, increase in LE edema, palpitations, LH, dizziness, weakness, numbness, and tingling. Her daughter reports that this has happened in the past when she was dx with the flu. She does report mild productive cough over past 2 days but denies wheezing or significant SOB. History Information - Allergies/Home Medication List Allergies/Adverse Reactions: Penicillins Allergy (Intermediate, Verified 10/28/18 11:30) Rash Home Medications: Glucosam/Chondr/Collagn/Hyalur [Glucosamine & Chondroitin Cap] 1 each PO DAILY 08/24/14 [Last Taken 10/28/18] Latanoprost 0.005% [Xalatan 0.005% (*)] 1 drops EACHEYE HS 08/24/14 [Last Taken 10/31/16] Multivitamins [Multivitamin (*)] 1 each PO DAILY 08/24/14 [Last Taken 10/28/18] Omeprazole [Prilosec 20 mg] 20 mg PO DAILY 08/24/14 [Last Taken 10/28/18] Aspirin EC [Aspirin EC 81 mg (*)] 81 mg PO DAILY18 09/21/16 [Last Taken 10/27/18 ] Lisinopril [Zestril 20 mg (*)] 20 mg PO DAILY 09/21/16 [Last Taken 10/28/18] metFORMIN SR [Glucophage XR 500 mg (*)] 1,000 mg PO BID 09/21/16 [Last Taken ] Acetaminophen [Tylenol 325mg (*)] 325 - 650 mg PO Q6H PRN 11/01/16 [Last Taken Unknown] Furosemide [Lasix 40 MG (*)] 40 mg PO DAILY 11/01/16 [Last Taken 10/28/18] Atorvastatin Calcium [Lipitor 40 mg (*)] 40 mg PO DAILY18 10/28/18 [Last Taken 10/27/18] Empagliflozin [Jardiance] 10 mg PO DAILY 10/28/18 [Last Taken 10/28/18] Furosemide [Lasix 20 MG (*)] 20 mg PO HS 10/28/18 [Last Taken 10/27/18] Herbals/Supplements -Info Only 1 ea PO DAILY 10/28/18 [Last Taken Unknown] I have personally reviewed and updated: family history, medical history, social history, surgical history - Past Medical History coronary artery disease, COPD, diabetes type 2, hypertension - Surgical History Reports: no pertinent surgical hx - Family History Positive for: non-pertinent - Social History Smoking Status: Former smoker Review of Systems Review of Systems: ROS: 10pt was reviewed & negative except for what was stated in HPI & below Physical Exam Physical Exam: Temp Pulse Resp BP Pulse Ox 37.2 C 79 18 115/57 L 94 10/28/18 11:31 10/28/18 14:34 10/28/18 14:34 10/28/18 14:34 10/28/18 14:34 O2 (L/minute) 3 Constitutional: chronically ill appearing Eyes: PERRL Ears, Nose, Mouth, Throat: dry mucous membranes Cardiovascular: regular rate and rhythym Lab Data & Imaging Review 10/28/18 12:15 10/28/18 12:15 WBC 20.94 10^3/uL (3.80-9.50) H 10/28/18 12:15 RBC 4.52 10^6/uL (4.18-5.33) 10/28/18 12:15 Hgb 13.0 g/dL (12.6-16.3) 10/28/18 12:15 Hct 40.7 % (38.0-47.0) 10/28/18 12:15 MCV 90.0 fL (81.5-99.8) 10/28/18 12:15 MCH 28.8 pg (27.9-34.1) 10/28/18 12:15 MCHC 31.9 g/dL (32.4-36.7) L 10/28/18 12:15 RDW 12.3 % (11.5-15.2) 10/28/18 12:15 Plt Count 278 10^3/uL (150-400) 10/28/18 12:15 MPV 10.3 fL (8.7-11.7) 10/28/18 12:15 Neut % (Auto) Not Reported 10/28/18 12:15 Lymph % (Auto) Not Reported 10/28/18 12:15 [place] % (Auto) Not Reported 10/28/18 12:15 Eos % (Auto) Not Reported 10/28/18 12:15 Baso % (Auto) Not Reported 10/28/18 12:15 Nucleat RBC Rel Count Not Reported 10/28/18 12:15 Absolute Neuts (auto) Not Reported 10/28/18 12:15 Absolute Lymphs (auto) Not Reported 10/28/18 12:15 Absolute Monos (auto) Not Reported 10/28/18 12:15 Absolute Eos (auto) Not Reported 10/28/18 12:15 Absolute Basos (auto) Not Reported 10/28/18 12:15 Absolute Nucleated RBC Not Reported 10/28/18 12:15 Immature Gran % Not Reported 10/28/18 12:15 Seg Neutrophils % 83.0 % 10/28/18 12:15 Band Neutrophils % 7.0 % 10/28/18 12:15 Lymphocytes % 4.0 % 10/28/18 12:15 Monocytes % 5.0 % 10/28/18 12:15 Eosinophils % 0.0 % 10/28/18 12:15 Basophils % 1.0 % 10/28/18 12:15 Metamyelocytes % 0.0 % 10/28/18 12:15 Myelocytes % 0.0 % 10/28/18 12:15 Promyelocytes % 0.0 % 10/28/18 12:15 Blast Cells % 0.0 % 10/28/18 12:15 Immature Gran # Not Reported 10/28/18 12:15 Absolute Seg Neuts 17.38 10^3/uL (1.70-6.50) H 10/28/18 12:15 Absolute Band Neuts 1.47 10^3/uL (0.00-0.70) H 10/28/18 12:15 Absolute Lymphocytes 0.84 10^3/uL (1.00-3.00) L 10/28/18 12:15 Absolute Monocytes 1.05 10^3/uL (0.30-0.80) H 10/28/18 12:15 Absolute Eosinophils 0.00 10^3/uL (0.03-0.40) L 10/28/18 12:15 Absolute Basophils 0.21 10^3/uL (0.02-0.10) H 10/28/18 12:15 Absolute Metamyelocyte 0.00 10^3/mL (0.00-0.00) 10/28/18 12:15 Absolute Myelocytes 0.00 10^3/mL (0.00-0.00) 10/28/18 12:15 Absolute Promyelocytes 0.00 10^3/uL (0.00-0.00) 10/28/18 12:15 Absolute Plasma Cells 0.00 10^3/uL (0.00-0.00) 10/28/18 12:15 Nucleated RBCs 0 /100 WBC (0-0) 10/28/18 12:15 RBC/WBC/PLT Morphology NORMAL (NORMAL) 10/28/18 12:15 Absolute Blast Cells 0.00 10^3/uL (0.00-0.00) 10/28/18 12:15 Plasma Cells % 0.0 % 10/28/18 12:15 Platelet Estimate ADEQUATE (ADEQ) 10/28/18 12:15 PT 16.3 SEC (12.0-15.0) H 10/28/18 12:15 INR 1.29 (0.83-1.16) H 10/28/18 12:15 APTT 30.9 SEC (23.0-38.0) 10/28/18 12:15 D-Dimer 0.95 ug/mLFEU (0.00-0.50) H 10/28/18 12:15 VBG Lactic Acid 2.7 mmol/L (0.7-2.1) H 10/28/18 12:15 Sodium 139 mEq/L (135-145) 10/28/18 12:15 Potassium 4.1 mEq/L (3.5-5.2) 10/28/18 12:15 Chloride 105 mEq/L (97-110) 10/28/18 12:15 Carbon Dioxide 24 mEq/l (22-31) 10/28/18 12:15 Anion Gap 10 mEq/L (6-14) 10/28/18 12:15 BUN 62 mg/dL (7-23) H 10/28/18 12:15 Creatinine 1.3 mg/dL (0.6-1.0) H 10/28/18 12:15 Estimated GFR 39 10/28/18 12:15 Glucose 240 mg/dL (70-100) H 10/28/18 12:15 Calcium 9.7 mg/dL (8.5-10.4) 10/28/18 12:15 Total Bilirubin 1.5 mg/dL (0.1-1.4) H 10/28/18 12:15 POC Troponin I 0.02 ng/mL (0.00-0.08) 10/28/18 12:23 NT-Pro-B Natriuret Pep 609 pg/mL (0-450) H 10/28/18 12:15 Urine Color YELLOW 10/28/18 13:15 Urine Appearance CLEAR 10/28/18 13:15 Urine pH 5.0 (5.0-7.5) 10/28/18 13:15 Ur Specific [place] 1.011 (1.002-1.030) 10/28/18 13:15 Urine Protein NEGATIVE (NEGATIVE) 10/28/18 13:15 Urine Ketones NEGATIVE (NEGATIVE) 10/28/18 13:15 Urine Blood NEGATIVE (NEGATIVE) 10/28/18 13:15 Urine Nitrate NEGATIVE (NEGATIVE) 10/28/18 13:15 Urine Bilirubin NEGATIVE (NEGATIVE) 10/28/18 13:15 Urine Urobilinogen NEGATIVE EU (0.2-1.0) 10/28/18 13:15 Ur Leukocyte Esterase NEGATIVE (NEGATIVE) 10/28/18 13:15 Urine RBC 1-3 /hpf (0-3) 10/28/18 13:15 Urine WBC 1-3 /hpf (0-3) 10/28/18 13:15 Ur Epithelial Cells TRACE /lpf (NONE-1+) 10/28/18 13:15 Hyaline Casts 1-5 /lpf (0-1) 10/28/18 13:15 Urine Glucose 3+ (NEGATIVE) H 10/28/18 13:15 Nasal Influenza A PCR NEGATIVE FOR FLU A (NEGATIVE) 10/28/18 11:40 Nasal Influenza B PCR NEGATIVE FOR FLU B (NEGATIVE) 10/28/18 11:40 Assessment & Plan Assessment: Community Acquired Bacterial Pneumonia (Acute) - Presenting with acute onset weakness overnight, productive cough - CXR on admission showing R basilar consolidation consistent with PNA, also peribronchial cuffing consistent with underlying bronchitis - Initially reported as hypotensive in ED with SBP 80s, however documented BP 119/64, HR 80 - S/p 1 L IVF in the ED, due to hx of dCHF - WBC 20.9 on admission with 7% Bands, LA 2.7, will repeat s/p IVF - Blood cultures collected - Flu and RVP negative on admission - S/p Ceftriaxone and Azithromycin in ED, will continue - Ordered PRN Duonebs for SOB BILLY - BUN/Cr 62/1.3 on admission, 42/1.0 10/07/2018 - In setting of PNA as above, also taking Lasix 40 mg qAM, 20 mg qPM and Lisinopril 20 mg qd - Will hold Lasix and BENJAMÍN-i overnight - Continue IVF @ 75 ml/hr, monitor for s/s of fluid overload given hx of dCHF - Continue to monitor BMP, I/O, avoid Nephrotoxic agents CAD S/p Stents - Continue home ASA, Plavix - Trop negative on admission, no complaints of chest pain Paroxysmal A Fib - Continue home Metoprolol, Eliquis T2DM - BG elevated to 240 on admission - Continue home Jardiance, holding home Metformin - Will order SSI Diastolic CHF - Appears dehydrated on exam, BNP 609 on admission - CXR not showing any pulmonary edema - Will hold Lasix for tonight given BILLY as above - Continue to monitor volume status GERD - continue home PPI FEN: Cardiac, mIVF overnight DVT Ppx: Home Eliquis Code: FULL Dispo: Admit to Medicine
[2018-10-28] MEDS ORDERED: D50W 25 GM/50 ML SYR IVP PRN (14:58)
[2018-10-28] MEDS ORDERED: NS 1,000 ML IV SCH (15:00)
--- NOTE | 2018-10-28 16:40 | PDMN ---
Medical Necessity Medical necessity: Pt meets IP criteria per & MEI M-282; est los >2 mn for eval/tx of community-acquired pneumonia, acute kidney injury & weakness; requiring further monitoring, IV abx, respiratory supportive care & therapies; comorbid advanced age, AFIB on AC, CHF, CAD, diabetes, COPD; per H&P & order
[2018-10-28] MEDS: ATORVASTATIN CALCIUM 40 MG TAB PO SCH (18:27)
[2018-10-28] MEDS: ASPIRIN EC 81 MG TAB PO SCH (18:27)
[2018-10-28] MEDS: INSULIN LISPRO 100 UNIT/ML SC SCH (18:27)
[2018-10-28] MEDS: APIXABAN 5 MG TAB PO SCH (20:29)
[2018-10-28] MEDS: LATANOPROST 0.005% 2.5 ML OPHT DROPS EACHEYE SCH (20:29)
[2018-10-29] MEDS: MELATONIN 3 MG TAB PO PRN ×2 (00:50→21:43)
[2018-10-29 04:45] LABS: PLATELET COUNT 224 10^3/uL (150-400)
[2018-10-29] MEDS ORDERED: NON-FORMULARY NEW DRUG (Glucosam/Chondr/Collagn/Hyalur [Glucosamine & Chondroitin Cap] 1 E PO SCH (09:00)
[2018-10-29] MEDS: METOPROLOL SUCCINATE XR 25 MG TAB PO SCH (10:09)
[2018-10-29] MEDS: MULTIVITAMINS 1 EACH TAB PO SCH (10:09)
[2018-10-29] MEDS: CLOPIDOGREL BISULFATE 75 MG TAB PO SCH (10:09)
[2018-10-29] MEDS: APIXABAN 5 MG TAB PO SCH ×2 (10:10→20:07)
[2018-10-29] MEDS: PANTOPRAZOLE SODIUM 40 MG TAB PO SCH (10:10)
[2018-10-29] MEDS: FUROSEMIDE 40 MG TAB PO SCH (10:10)
[2018-10-29] MEDS: Empagliflozin [Jardiance] 10 MG PO SCH (10:11)
--- NOTE | 2018-10-29 10:14 | ASMTCMCOM ---
CM Note CM Note Notes: Pt is an 83 yo f, presents with pnemonia and dehydration, pt is obese. She lives at the [facility], has caregivers come to put on her compression stockings daily and it is arranged through the [facility]. Pt has two daughters who are supportive. PT/OT evals pending. CM to follow. Plan: TBD Date Signed: 10/29/2018 10:13 AM Electronically Signed By:JENNA Godoy
[2018-10-29] MEDS: AZITHROMYCIN IV 500 MG in NS 250 ML IV SCH (10:19)
[2018-10-29] MEDS: INSULIN LISPRO 100 UNIT/ML SC SCH ×3 (11:01→18:25)
--- NOTE | 2018-10-29 13:34 | HOSPPROG ---
Hospitalist Progress Note Assessment/Plan: Community Acquired Bacterial Pneumonia (Acute) - Presentedwith acute onset weakness overnight, productive cough - CXR on admission showing R basilar consolidation consistent with PNA, also peribronchial cuffing consistent with underlying bronchitis - Initially reported as hypotensive in ED with SBP 80s, however documented BP 119/64, HR 80 - S/p 1 L IVF in the ED, due to hx of dCHF - WBC 20.9 on admission with 7% Bands, LA 2.7, repeat 2.5 - Blood cultures collected- NGTD - Flu and RVP negative on admission - S/p Ceftriaxone and Azithromycin in ED, will continue - Ordered PRN Duonebs for SOB BILLY - BUN/Cr 62/1.3 on admission, 42/1.0 10/07/2018 - BUN/Cr improved to 41/1.0 this AM s/p IVF - Also was taking Lasix 40 mg qAM, 20 mg qPM and Lisinopril 20 mg qd - Held Lasix and BENJAMÍN-i overnight last night, will restart home Laxis today, continue to hold BENJAMÍN-i - Continue to monitor BMP, I/O, avoid Nephrotoxic agents CAD S/p Stents - Continue home ASA, Plavix - Trop negative on admission, no complaints of chest pain Paroxysmal A Fib - Continue home Metoprolol, Eliquis T2DM - BG elevated to 240 on admission - Continue home Jardiance, holding home Metformin - SSI Diastolic CHF - Appears dehydrated on exam, BNP 609 on admission - CXR not showing any pulmonary edema - Held Lasix, restarting today - Continue to monitor volume status GERD - continue home PPI FEN: Cardiac, mIVF overnight DVT Ppx: Home Eliquis Code: FULL Dispo: Pending clinical course Subjective: Patient reports breathing is improving this AM, productive cough overnight Objective: Vital Signs Temp Pulse Resp BP Pulse Ox 37.1 C 65 14 117/60 93 10/29/18 12:10 10/29/18 12:10 10/29/18 12:10 10/29/18 12:10 10/29/18 12:10 Laboratory Results 10/29/18 04:20 10/29/18 04:20 10/28/18 10/29/18 10/30/18 05:59 05:59 05:59 Intake Total 1806 1967 Output Total 1750 500 Balance 56 1467 PT 16.3 SEC (12.0-15.0) H 10/28/18 12:15 INR 1.29 (0.83-1.16) H 10/28/18 12:15 - Physical Exam Constitutional: chronically ill appearing Eyes: PERRL Ears, Nose, Mouth, Throat: moist mucous membranes Cardiovascular: irregularly irregular Respiratory: reduced air movement Gastrointestinal: soft, non-tender abdomen Skin: warm Neurologic: AAOx3 Psychiatric: interacting appropriately ICD10 Worksheet Patient Problems: Problems Problem Status Onset Chronic Disease Mgmt/Transitional Care Acute Dehydration Acute Pneumonia Acute Influenza A Acute
[2018-10-29] MEDS: ASPIRIN EC 81 MG TAB PO SCH (17:59)
[2018-10-29] MEDS: ATORVASTATIN CALCIUM 40 MG TAB PO SCH (17:59)
[2018-10-29] MEDS: FUROSEMIDE 20 MG TAB PO SCH (20:07)
[2018-10-29] MEDS: LATANOPROST 0.005% 2.5 ML OPHT DROPS EACHEYE SCH (21:44)
[2018-10-30 05:37] LABS: PLATELET COUNT 232 10^3/uL (150-400)
[2018-10-30] MEDS: INSULIN LISPRO 100 UNIT/ML SC SCH ×3 (07:58→17:43)
[2018-10-30] MEDS: FUROSEMIDE 40 MG TAB PO SCH (07:59)
[2018-10-30] MEDS: APIXABAN 5 MG TAB PO SCH ×2 (07:59→21:36)
[2018-10-30] MEDS: PANTOPRAZOLE SODIUM 40 MG TAB PO SCH (07:59)
[2018-10-30] MEDS: METOPROLOL SUCCINATE XR 25 MG TAB PO SCH (07:59)
[2018-10-30] MEDS: MULTIVITAMINS 1 EACH TAB PO SCH (07:59)
[2018-10-30] MEDS: CLOPIDOGREL BISULFATE 75 MG TAB PO SCH (08:00)
[2018-10-30] MEDS: GLUCOSAMINE/CHONDROITIN CAP PO SCH (08:00)
[2018-10-30] MEDS: Empagliflozin [Jardiance] 10 MG PO SCH (08:01)
[2018-10-30] MEDS: AZITHROMYCIN IV 500 MG in NS 250 ML IV SCH (08:06)
--- NOTE | 2018-10-30 12:09 | HOSPPROG ---
Hospitalist Progress Note Assessment/Plan: # RLL pneumonia - cont rocephin, stop azith (s/p 1.5g) # BILLY - resolved # CAD s/p PCI - on asa/plavix/lipitor/eliquis at home - per last cards note 08/12 by Cande, she should be off plavix (PCI > 1 year ago) - will stop today # paroxysmal a-fib - eliquis, metop # dCHF - cont lasix # DM2 - cont Jardience, restart metformin - cont SSI # GERD - PPI Subjective: feels better today Objective: Vital Signs Temp Pulse Resp BP Pulse Ox 36.8 C 105 H 18 125/83 H 94 10/30/18 07:06 10/30/18 07:06 10/30/18 07:06 10/30/18 07:06 10/30/18 07:06 Laboratory Results 10/30/18 04:25 10/30/18 04:25 10/29/18 10/30/18 10/31/18 05:59 05:59 05:59 Intake Total 1806 2567 Output Total 1750 2125 Balance 56 442 PT 16.3 SEC (12.0-15.0) H 10/28/18 12:15 INR 1.29 (0.83-1.16) H 10/28/18 12:15 chart reviewed CXR personally reviewed ICD10 Worksheet Patient Problems: Problems Problem Status Onset Chronic Disease [facility]/Transitional Care Acute Influenza A Acute Pneumonia Acute Dehydration Acute
[2018-10-30] MEDS ORDERED: PERMETHRIN 1% 59 ML LOTION (Hair rinse) TP ONE (12:27)
--- NOTE | 2018-10-30 14:13 | ASMTCMCOM ---
CM Note CM Note Notes: 10/30/2018 Case Management Note Discussed pt with daughter Kelli Christensen [phone]. Kelli flying in from [place] to care for pt daughter Peterson Ronquillo who had surgery today. Kelli agrees with PT assessement for home care. Faxed referral to [facility]. Case Management d/c poc: return to the [facility] with family support and [facility] home care pending acceptance. Case Management to follow. Date Signed: 10/30/2018 02:09 PM Electronically Signed By:Harper Barcenas RN
[2018-10-30] MEDS: ATORVASTATIN CALCIUM 40 MG TAB PO SCH (17:44)
[2018-10-30] MEDS: ASPIRIN EC 81 MG TAB PO SCH (17:44)
[2018-10-30] MEDS: FUROSEMIDE 20 MG TAB PO SCH (19:13)
[2018-10-30] MEDS: metFORMIN SR 500 MG TAB PO SCH (21:36)
[2018-10-30] MEDS: MELATONIN 3 MG TAB PO PRN (21:46)
[2018-10-30] MEDS: LATANOPROST 0.005% 2.5 ML OPHT DROPS EACHEYE SCH (21:48)
[2018-10-31 07:46] VITALS: BP 116/91
[2018-10-31] MEDS: GLUCOSAMINE/CHONDROITIN CAP PO SCH (09:15)
[2018-10-31] MEDS: metFORMIN SR 500 MG TAB PO SCH (09:15)
[2018-10-31] MEDS: PANTOPRAZOLE SODIUM 40 MG TAB PO SCH (09:15)
[2018-10-31] MEDS: MULTIVITAMINS 1 EACH TAB PO SCH (09:15)
[2018-10-31] MEDS: METOPROLOL SUCCINATE XR 25 MG TAB PO SCH (09:15)
[2018-10-31] MEDS: FUROSEMIDE 40 MG TAB PO SCH (09:16)
[2018-10-31] MEDS: APIXABAN 5 MG TAB PO SCH (09:16)
[2018-10-31] MEDS: INSULIN LISPRO 100 UNIT/ML SC SCH (09:16)
[2018-10-31] MEDS: Empagliflozin [Jardiance] 10 MG PO SCH (09:17)
--- NOTE | 2018-10-31 09:55 | PDIAF ---
- Diagnosis Diagnosis: pneumonia Code Status: Full Code - Medication Management Discharge Medications: electronically signed and located in the Home Medication List. - Orders Services needed: Home Care, Registered Nurse, Certified Skin Tanner, Physical Therapy, Occupational Therapy Home Care Face to Face: I certify that this patient was under my care and that I had the required [id number] encounter meeting the encounter requirements on the discharge day. My findings support the fact that the patient is homebound as defined in Home Care Face to Face Continued: CMS Chapter 7 Medicare Benefits Manual 30.1.1 , The condition of the patient is such that there exists a normal inability to leave home and consequently, leaving home would require a considerable and taxing effort. Isolation Type: None - Follow Up Care Current Providers and Referrals: Rosmery Doran MD [Primary Care Provider] - As per Instructions Jessie Balderrama MD [Medical Doctor] - (within 1 month)
--- NOTE | 2018-10-31 10:21 | ASMTLACE ---
LACE Length of stay for Answers: 2 days current admission Acuity / Level of Answers: Yes Care: Did the patient have an inpatient admission? Comorbidities - select Answers: Chronic pulmonary disease all that apply Congestive heart failure Coronary Artery Disease Diabetes (uncontrolled or controlled) Other Notes: AFib; HTN # of Emergency department Answers: 1-2 visits in the last 6 months Score: 14 Date Signed: 10/31/2018 10:20 AM Electronically Signed By:Harper Barcenas RN
--- NOTE | 2018-10-31 10:23 | ASMTDCNOTE ---
Case Management Discharge Discharge Order Complete? Answers: Yes Patient to Obtain Answers: via Family Medications Transportation Arranged Answers: Family/Friends Faxed Final Orders Answers: Yes Notes: to [facility] care Agency/Facility Transfer Answers: Yes Notes: top [facility] care Report Printed & Faxed to Receiving Agency Family Notified Answers: Yes Notes: in room Discharge Comments Notes: 10/31/2018 Case Management Note Faxed final orders to [facility]. Rajat to visit onsite. Discussed current living situation with daughter and pt. The [facility] provides all meals and housekeeping once a week. Family has hired PT Ariana Ortega from [facility] out of pocket. Pt agreed to suspend those services while working with [facility]. Case Management d/c poc: home with [facility] RN PT OT Date Signed: 10/31/2018 10:23 AM Electronically Signed By:Harper Barcenas RN
--- NOTE | 2018-10-31 10:39 | GDS ---
[f rep st] DISCHARGE SUMMARY ALL DIAGNOSES: 1. Right lower lobe pneumonia. 2. Acute kidney injury. 3. Coronary artery disease, status post percutaneous coronary intervention greater than 1 year. 4. Paroxysmal atrial fibrillation. 5. Diastolic congestive heart failure. 6. Diabetes mellitus, type 2. 7. Gastroesophageal reflux disease. HOSPITAL COURSE: 83-year-old female admitted with dyspnea, found to have a right lower lobe pneumoni a. She has received 4 days of intravenous antibiotics and feeling much better. She is beginning to clear some of her sputum today. She will be discharged on an additional 3 days of Levaquin. I have given her the risks and side effects of this medication. In terms of her heart disease, she had been taking triple therapy blood thinners, including aspirin, Plavix, and Eliquis. In reviewing Cande Beasley's last note, she should stop her Plavix. I am stopp ing this on discharge. Her blood pressures have been below her baseline. Her Lasix has been continued and her metoprolol fo r her paroxysmal atrial fibrillation has been continued. I am holding her lisinopril on discharge. Last blood pressure is 116/91. She should follow up with her PCP, either Dr. Doran or Dr. Conchis duncan o restart her lisinopril. DISPOSITION: She is discharged in stable condition home with home care. BILLING: I spent more than 30 minutes on the day of discharge coordinating care. /[id number]/MODL
--- NOTE | 2018-10-31 15:10 | ASDISCHSUM ---
Discharge Information Plan Status:Home with Home Health Medically Cleared to Leave:10/30/2018 Discharge Date:10/31/2018 11:35 AM CM D/C Disposition:Home Health Service [facility] D/C Disposition:[id number] Projected Discharge Date:10/31/2018 11:00 AM Transportation at D/C:Family Discharge Delay Reason: Follow-Up Date:10/31/2018 11:00 AM Discharge Slot: Final Diagnosis: Placement Information Referral Type:*Home Health Care Services Referral ID:[id number] Provider Name:[facility] ([facility]) Address 1:[address] [address] Address 2: City:[place] Selection Factors: State:[place] Patient Contact Information Contact Name:GERALDINE Relationship:Daughter Address: Work Phone: [place] [facility] [place] Phone: [facility] Code: Email: Financial Information Financial Class:Medicare Primary Plan Desc:MEDICARE INPATIENT Primary Plan Number:[id number] Secondary Plan Desc:[employer]ARP/MDR SUPPLEMENT Secondary Plan Number:[id number] Assessment Information LACE LACE Length of stay for Answers: 2 days current admission Acuity / Level of Answers: Yes Care: Did the patient have an inpatient admission? Comorbidities - select Answers: Chronic pulmonary disease all that apply Congestive heart failure Coronary Artery Disease Diabetes (uncontrolled or controlled) Other Notes: AFib; HTN # of Emergency department Answers: 1-2 visits in the last 6 months Score: 14 Date Signed: 10/31/2018 10:20 AM Electronically Signed By:Harper Barcenas RN [facility] CM Progress Note CM Note CM Note Notes: Pt is an 83 yo f, presents with pnemonia and dehydration, pt is obese. She lives at the [facility], has caregivers come to put on her compression stockings daily and it is arranged through the [facility]. Pt has two daughters who are supportive. PT/OT evals pending. CM to follow. Plan: TBD Date Signed: 10/29/2018 10:13 AM Electronically Signed By:JENNA Godoy [facility] CM Progress Note CM Note CM Note Notes: 10/30/2018 Case Management Note Discussed pt with daughter Kelli Christensen [phone]. Kelli flying in from [place] to care for pt daughter Peterson Ronquillo who had surgery today. Kelli agrees with PT assessement for home care. Faxed referral to [facility]. Case Management d/c poc: return to the [facility] with family support and [facility] home care pending acceptance. Case Management to follow. Date Signed: 10/30/2018 02:09 PM Electronically Signed By:Harper Barcenas RN Case Management Discharge Plan Note Case Management Discharge Discharge Order Complete? Answers: Yes Patient to Obtain Answers: via Family Medications Transportation Arranged Answers: Family/Friends Faxed Final Orders Answers: Yes Notes: to [facility] Agency/Facility Transfer Answers: Yes Notes: top [facility] Report Printed & Faxed to Receiving Agency Family Notified Answers: Yes Notes: in room Discharge Comments Notes: 10/31/2018 Case Management Note Faxed final orders to [facility]. Rajat to visit onsite. Discussed current living situation with daughter and pt. [facility] provides all meals and housekeeping once a week. Family has hired PT Ariana Ortega from [facility] out of pocket. Pt agreed to suspend those services while working with [facility]. Case Management d/c poc: home with [facility] RN PT OT Date Signed: 10/31/2018 10:23 AM Electronically Signed By:Harper Barcenas RN Intervention Information Intervention Type:*Incorrect Registration Date of Service:10/28/2018 04:23 PM Patient Type:Observation Staff Member:CARLITOS Dutton Courtney Hours: Discipline: Severity: Comment: Intervention Type:*IM-Signed Date of Service:10/31/2018 10:21 AM Patient Type:Inpatient Staff Member:Jazmin Cortez Hours: Discipline: Severity: Comment:
== END 2018-10-31 11:35 | disposition home health service (06) | DRG 194 ==
LOC: OBSVTOIN 13:59 → F2W 14:44
PROVIDERS: ADMIT Internal Medicine; ATTEND Internal Medicine
DX: J18.9 Pneumonia, unspecified organism (principal); N17.9 Acute kidney failure, unspecified; I48.0 Paroxysmal atrial fibrillation; E11.9 Type 2 diabetes mellitus without complications; I11.0 Hypertensive heart disease with heart failure; I50.30 Unspecified diastolic (congestive) heart failure; I25.10 Atherosclerotic heart disease of native coronary artery without angina pectoris; K21.9 Gastro-esophageal reflux disease without esophagitis; J44.9 Chronic obstructive pulmonary disease, unspecified; Z99.81 Dependence on supplemental oxygen; Z87.891 Personal history of nicotine dependence; Z95.5 Presence of coronary angioplasty implant and graft; Z79.01 Long term (current) use of anticoagulants; Z96.652 Presence of left artificial knee joint; Z87.440 Personal history of urinary (tract) infections
CPT/HCPCS: 84484-ER; 96365; 96366; 97110-GP; 97116-GP; 97161-GP; 97166-GO; 97530-GP; 97535-GO; J0456; J0696; J1815